=== PATIENT | male | born 2000 | race Caucasian/White ===

== ENCOUNTER 2021-09-27 18:44 | Outpatient (REF) | payer BC, SELFPAY ==
[2021-09-27 22:01] LABS: Bilirubin Negative (Negative); Blood Negative (Negative); Clarity Sl Cloudy (Clear); Glucose Negative (Negative); Ketones Negative (Negative); Leukocyte Esterase Negative (Negative); Nitrite Negative (Negative); Specific Gravity >= 1.030 (1.005-1.025)
[2021-09-28 17:28] LABS: ALT 19 U/L (16-63); AST 16 U/L (15-37); Albumin 4.2 g/dL (3.4-5.0); Alkaline Phosphatase 76 U/L (46-116); Bilirubin, Direct 0.2 mg/dL (0.0-0.2); Bilirubin, Total 0.6 mg/dL (0.2-1.0); Total Protein 7.1 g/dL (6.4-8.2)
[2021-09-29 09:55] LABS: HBs Antibody, Qual Positive (See Note); HBs Antibody, Quant 104.6 mIU/mL (See Note); Hepatitis B Core Antibody Negative (Negative); Hepatitis B surface Ag Negative (Negative); Hepatitis C Ab w Rflx HCV PCR Negative (Negative)
[2021-09-29 10:14] LABS: HIV-1/2 Ag & Ab Screen Negative (Negative)
[2021-09-29 10:34] LABS: Syphilis Serology (RPR) Negative (Negative)
[2021-09-29 13:34] LABS: Chlamydia Result Negative (Negative); GC Result Negative (Negative)
== END 2021-09-27 18:45 | disposition home or self-care (01) ==
LOC: LBN 18:44
PROVIDERS: Physician Assistant; PCP Pediatrics; Visit Provider Nurse Practitioner Family
DX: N39.0 Urinary tract infection, site not specified (principal); Z11.4 Encounter for screening for human immunodeficiency virus [HIV]; Z11.59 Encounter for screening for other viral diseases; Z11.3 Encounter for screening for infections with a predominantly sexual mode of transmission
CPT/HCPCS: 80076; 86704; 86706; 86803; 87340; 87389; 87491; 87591; 81003; 86592

== ENCOUNTER 2021-09-30 01:18 | Emergency (ER) | payer BC, SELFPAY ==
[2021-09-30 01:23] VITALS: BP 159/91; PULSE 98; RESP 16; TEMP 36.8; O2SAT 99
[2021-09-30 01:43] LABS: Bilirubin Negative (Negative); Blood Trace-intact (Negative); Clarity Clear (Clear); Glucose Negative (Negative); Ketones Negative (Negative); Leukocyte Esterase Negative (Negative); Nitrite Negative (Negative); Specific Gravity >= 1.030 (1.005-1.025); pH 6.5 (5-8)
[2021-09-30 01:45] LABS: Bacteria Rare HPF (Negative); C & S Indicated? No; Casts Negative LPF (Negative); Crystals Negative HPF (Negative); Epithelial Cells Rare HPF (Negative); Mucus Negative (Negative); RBC 0-2 HPF (0-2); WBC Negative HPF (0-5)
--- NOTE | 2021-09-30 01:45 | ED.GENADUL_ITS ---
Discharge Plan Disposition Patient Disposition: HOME Condition: Good Discharge Details Clinical Impression: Diarrhea Primary Care Provider: Maxx Gastelum ED Provider: Marty Aguila Home Meds and New Rx's Prescriptions: New loperamide [Imodium A-D] 2 mg capsule 2 mg PO Q6H PRNQty: 10 RF: 0 Continued sulfamethoxazole-trimethoprim [Bactrim DS] 800-160 mg tablet 1 tab PO BID Qty: 20 RF: 0 melatonin 5 MG tablet 5 mg PO HS PRNQty: 30 RF: 0 epinephrine [EpiPen 2-Zeeshan] 0.3 MG/0.3 ML auto-injector 0.3 mg IM PRN Qty: 1 RF: 1 Discharge Instructions Instructions: Acute Diarrhea (ED) Additional Instructions: At this time your diarrhea is likely secondary to the antibiotic that you are on. At this time the antibiotic is still important for the treatment of your other medical problem. Please take a probiotic daily to help with the diarrhea. You can take Maalox or Pepto-Bismol to help as well. I have sent a prescription for an antidiarrhea agent to your pharmacy. Please bring a stool sample to the pharmacy once you acquire. Please stick with a bland diet of oatmeal, rice, bananas. Avoid any greasy foods. If you notice any worsening of your symptoms, or any new symptoms such as vomiting, diarrhea, fever, chills, shortness of breath, chest pain, numbness, weakness, or fainting , please return immediately to the emergency department for reevaluation. Please follow up with your primary care provider as soon as possible for reassessment and reevaluation. As always, it was a pleasure participating in your medical care today. Referrals: Maxx Gastelum [Primary Care Provider] - Medical Decision Making 21-year-old male with no significant past medical history who presents today for evaluation of mild diarrhea. Patient was initially seen at the local urgent care 3 to 4 days ago, at that time it was because of complaints of urinary hesitancy, mild pain with the with urination and ejaculation. Exam at that time demonstrated mild prostatitis. He was started on Bactrim. Patient is feeling much better from those problems, however the day after starting the antibiotic he developed mild diarrhea and mild stomach unease. He denies any vomiting. He denies any melena or hematochezia. He denies any family history of Crohn's, ulcerative colitis, or celiac disease. He has not used a probiotic. He denies any other complaints this time. He denies any recent foreign travel or drinking from streams or camping. Physical exam demonstrates a nontender abdomen, no evidence of an acute surgical abdomen. Genital exam unremarkable. With no significant abdominal tenderness, complaint of mild achiness, in conjunction with mild diarrhea I suspect this patient has antibiotic induced diarrhea. C. difficile seems unlikely due to the low frequency of loose bowel movements that he has been having. Patient did attempt to procure a bowel movement sample here, but he was unable to. At this time I see no indication for emergent imaging or labs, however I did discuss these options with the patient. At this time through shared decision-making process he would like to hold off on any labs, or imaging currently. He will return if his symptoms worsen. Currently his symptoms are clinically consistent with mild antibiotic stated diarrhea. Discussed dietary changes, the importance of probiotic, and he will bring in a stool sample once he has been able to have a bowel movement. No current clinical evidence of colitis, appendicitis, cholecystitis, or other acute life-threatening surgical intra-abdominal pathology. I have extensively reviewed the treatment plan and discharge instructions with the patient. I have addressed all patient concerns at this time. The patient was made aware of what symptoms to monitor for that would warrant a return to the emergency department. Discussed the plan with the patient, they demonstrate verbal understanding and agreement with our assessment and plan at this time. The documentation in this chart was dictated using scoo mobility dictation software. Please excuse any dictation errors. HPI General Date/Time Provider Initiated Documentation: 09/30/21 01:31 . HPI Narrative: 21-year-old male with no significant past medical history who presents today for evaluation of mild diarrhea. Patient was initially seen at the local urgent care 3 to 4 days ago, at that time it was because of complaints of urinary hesitancy, mild pain with the with urination and ejaculation. Exam at that time demonstrated mild prostatitis. He was started on Bactrim. Patient is feeling much better from those problems, however the day after starting the antibiotic he developed mild diarrhea and mild stomach unease. He denies any vomiting. He denies any melena or hematochezia. He denies any family history of Crohn's, ulcerative colitis, or celiac disease. He has not used a probiotic. He denies any other complaints this time. He denies any recent foreign travel or drinking from streams or camping. Related Data Home Medications Medication Instructions Recorded Confirmed melatonin 5 mg PO HS PRN #30 tab 08/13/14 09/27/21 epinephrine [EpiPen 2-Zeeshan] 0.3 mg IM PRN #1 pack 03/21/16 09/30/21 sulfamethoxazole 800 1 tab PO BID #20 tab 09/27/21 09/30/21 mg-trimethoprim 160 mg tablet loperamide [Imodium A-D] 2 mg PO Q6H PRN #10 cap 09/30/21 Previous Rx's Medication Instructions Recorded sulfamethoxazole 800 1 tab PO BID #20 tab 09/27/21 mg-trimethoprim 160 mg tablet loperamide [Imodium A-D] 2 mg PO Q6H PRN #10 cap 09/30/21 Allergies Allergy/AdvReac Type Severity Reaction Status Date / Time shellfish derived Allergy Intermediate SWOLLEN Verified 09/30/21 01:25 LIPS AND PALATE General Stated Complaint: Abd Prob GWENDOLYN: 3 Review of Systems All systems reviewed & are unremarkable except as noted in HPI and below PFSH All Active Problems Diarrhea (Acute) Medical History Smoker in home dad, outside Thyroid nodule Family History Mother Mental disorder depression and anxiety, Bipolar Father Heart disease [place] age 47 Hyperlipidemia Maternal Aunt Neoplasm Social History Smoking/Tobacco Use Status: Current every day Tobacco Type: e-cigarettes Smoking risk assessment performed?: Yes Alcohol Intake: current Alcohol Intake frequency: holidays/special occasions only Drug use: Daily Substance use type: marijuana Do you feel safe at home: Yes Do you feel safe in your relationship?: Yes Exam Narrative Exam Narrative: 1.Const: Well-nourished, Well-developed, appearing stated age 2.Eyes: PERRL, no conjunctival injection, and symmetrical lids. 3.ENT: Atraumatic external nose and ears. Moist MM. Neck: Symmetric, trachea midline, No thyromegaly. 4.CVS: +S1/S2, No murmurs or gallops. Peripheral pulses 2+ and equal in all extremities. Brisk capillary refill in all extremities. 5.RESP: Unlabored respiratory effort. Clear to auscultation bilaterally. No wheezes rales or rhonchi 6.GI: Soft, Nontender/Nondistended, No hepatosplenomegaly. No guarding or rebound. No tenderness at McBurney's point. Negative Summers sign. No tenderness on palpation throughout the entire abdomen. No genital tenderness. No evidence of an acute surgical abdomen. Scrotal exam unremarkable. Penile exam unremarkable. 7.MSK: Normocephalic/Atraumatic, Extremities w/o deformity or ttp No cyanosis or clubbing, Normal movement of all extremities 8.Skin: Warm, Dry. No rashes or lesions. 9.Neuro: livestock rancher II-XII grossly intact. Sensation grossly intact, no focal neurologic deficits. 10.Psych: (AAO) x3. Appropriate mood and affect Course Vital Signs Vital signs: Vital Signs Temperature 36.8 C 09/30/21 01:23 Pulse 98 H 09/30/21 01:23 Respiratory Rate 16 09/30/21 01:23 Blood Pressure 159/91 H 09/30/21 01:23 Pulse Oximetry 99 09/30/21 01:23 Temperature 36.8 C 09/30/21 01:23 Pulse 98 H 09/30/21 01:23 Respiratory Rate 16 09/30/21 01:23 Respiratory Effort Non-Labored 09/30/21 01:26 Blood Pressure 159/91 H 09/30/21 01:23 Pulse Oximetry 99 09/30/21 01:23 Pain Level 7 09/30/21 01:23
== END 2021-09-30 01:55 | disposition home or self-care (01) ==
PROVIDERS: Emergency Provider Student in an Organized Health Care Education/Training Program; PCP Family Medicine
DX: R19.7 Diarrhea, unspecified (principal); N41.0 Acute prostatitis
CPT/HCPCS: 87329; 87493; 87505; 99283; 81003; 81015

== ENCOUNTER 2021-09-30 18:48 | Outpatient (REF) | payer BC, SELFPAY ==
[2021-09-30 20:15] LABS: C Diff PCR Negative (Negative)
[2021-10-03 11:02] LABS: Campylobacter PCR Negative (Negative); Salmonella PCR Negative (Negative); Shiga Toxin PCR Negative (Negative); Shigella/Enteroinvasive Ecoli Negative (Negative)
== END 2021-09-30 18:49 | disposition home or self-care (01) ==
LOC: LBN 18:48
PROVIDERS: PCP Family Medicine; Visit Provider Student in an Organized Health Care Education/Training Program
DX: R19.7 Diarrhea, unspecified (principal)
CPT/HCPCS: 87493; 87505; 87177

== ENCOUNTER 2021-10-05 19:11 | Outpatient (REF) | payer BC, SELFPAY ==
[2021-10-05 19:35] LABS: Anion Gap 6.9 mmol/L (3-11); BUN 10 mg/dL (7-18); CO2 27.1 mmol/L (21.0-32.0); CREATININE 0.9 mg/dL (0.70-1.30); Calcium 8.9 mg/dL (8.5-10.1); Chloride 107 mmol/L (98-107); Glucose 93 mg/dL (74-106); Potassium 4.1 mmol/L (3.5-5.1); Sodium 141 mmol/L (136-145)
== END 2021-10-05 19:12 | disposition home or self-care (01) ==
LOC: NCHCN 19:11
PROVIDERS: PCP Family Medicine; Visit Provider Family Medicine
DX: Z51.81 Encounter for therapeutic drug level monitoring (principal)
CPT/HCPCS: 80048

== ENCOUNTER 2021-11-04 21:34 | Outpatient (REF) | payer BC, SELFPAY ==
[2021-11-07 11:40] LABS: IgA 198 mg/dL (85-499); Interpretation (See Note); Tissue Transglutaminase IgA <1.2 U/mL (<4.0)
== END 2021-11-04 21:35 | disposition home or self-care (01) ==
LOC: NCHCN 21:34
PROVIDERS: PCP Family Medicine; Visit Provider Family Medicine
DX: R10.9 Unspecified abdominal pain (principal)
CPT/HCPCS: 82784; 83516

== ENCOUNTER 2021-11-11 13:45 | Emergency (ER) | payer BC, SELFPAY ==
[2021-11-11 13:51] VITALS: BP 126/83; PULSE 76; RESP 12; TEMP 36.8; O2SAT 100
--- NOTE | 2021-11-11 14:00 | DI.US_ITS ---
Exam(s) US SCROTUM EXAM: US SCROTUM CLINICAL HISTORY: discomfort left testicle. TECHNIQUE: Scrotal ultrasound performed using grayscale, color-flow and spectral Doppler analysis. COMPARISON: No exams were available for comparison FINDINGS: Right testicle: 4.4 x 1.9 x 2.9 cm Left testicle: 4.3 x 2.5 x 3.3 cm Echogenicity: Normal. Contour: Smooth. Mass: None seen. Microlithiasis: None. Hydrocele: None. Variocele: Left varicocele increasing in prominence with Valsalva. Vessels dilated to 4 millimeters in diameter. Hernia: No peristalsing bowel loop identified. Epididymis: Normal. DOPPLER: Color: Symmetric and uniform, no hyperemia. Duplex: Bilateral testicular arterial waveforms visualized. IMPRESSION: Normal appearing bilateral testicles. Left varicocele. DATA REPOSITORY:
--- NOTE | 2021-11-11 14:10 | NUR.NOTE ---
Nursing Note: Pt exam done by Dr. Garza w/ Addison Espinal, FRANCISCOP in room.
--- NOTE | 2021-11-11 15:14 | NUR.NOTE ---
Nursing Note: Pt return from u/s, no new complaints, NAD noted.
--- NOTE | 2021-11-11 15:32 | ED.GENADUL_ITS ---
Discharge Plan Disposition Patient Disposition: HOME Condition: Stable Discharge Details Clinical Impression: Left varicocele, Testicular swelling Primary Care Provider: Maxx Gastelum ED Provider: Amadou Garza Home Meds and New Rx's Prescriptions: Continued melatonin 5 MG tablet 5 mg PO HS PRNQty: 30 RF: 0 epinephrine [EpiPen 2-Zeeshan] 0.3 MG/0.3 ML auto-injector 0.3 mg IM PRN Qty: 1 RF: 1 loperamide [Imodium A-D] 2 mg capsule 2 mg PO Q6H PRNQty: 10 RF: 0 Discharge Instructions Instructions: Varicocele (ED) Additional Instructions: Please wear the athletic supportive underwear to elevate your scrotum. Please follow-up with urology should symptoms persist. Please return to the emergency department immediately should you have any worsening or new concerning symptoms. Referrals: Maxx Gastelum [Primary Care Provider] - Discharge Data Discharge Date/Time-TO BE ENTERED AT DEPARTURE: 11/11/21 16:00 Medical Decision Making 21-year-old male with left discomfort and mild swelling that he noticed this morning. No significant inflammatory changes on exam. Abdominal exam benign. Patient was recently diagnosed with prostatitis and treated with course of Bactrim and symptoms have resolved. STD testing negative in recent past. Patient is hypertensive which I suspect secondary to anxiety. Consider torsion vs mass. Ultrasound of the scrotum was interpreted by radiology: Varicocele is present, testicle normal testicle with good blood flow. UA negative. Plan to repeat chlamydia and gonorrhea testing. HPI General Mode of arrival: ambulatory . Date/Time Provider Initiated Documentation: 11/11/21 14:03 . Limitations to Documentation: no limitations . Information obtained by: patient . HPI Narrative: 21-year-old male presents with chief complaint of left testicular discomfort. Patient notes discomfort started this morning while in the shower. He states his left testicle feels swollen. He denies dysuria or penile discharge. Patient denies trauma. Patient was recently seen at [facility] and diagnosed with prostatitis and completed course of Bactrim about 2 weeks ago. Symptoms have improved. Patient patient did have gonorrhea and Chlamydia testing at [facility] which was negative. Related Data Home Medications Medication Instructions Recorded Confirmed melatonin 5 mg PO HS PRN #30 tab 08/13/14 09/27/21 epinephrine [EpiPen 2-Zeeshan] 0.3 mg IM PRN #1 pack 03/21/16 09/30/21 loperamide [Imodium A-D] 2 mg PO Q6H PRN #10 cap 09/30/21 Previous Rx's Medication Instructions Recorded loperamide [Imodium A-D] 2 mg PO Q6H PRN #10 cap 09/30/21 Allergies Allergy/AdvReac Type Severity Reaction Status Date / Time shellfish derived Allergy Intermediate SWOLLEN Verified 09/30/21 01:25 LIPS AND PALATE General Stated Complaint: Male Reproductive Problem GWENDOLYN: 2 Review of Systems Constitutional Constitutional: Denies fever(s) Genitourinary Genitourinary: Reports as per HPI PFSH All Active Problems Diarrhea (Acute) Left varicocele (Acute) Testicular swelling (Acute) Medical History Smoker in home dad, outside Thyroid nodule Family History Mother Mental disorder depression and anxiety, Bipolar Father Heart disease [place] age 47 Hyperlipidemia Maternal Aunt Neoplasm Social History Smoking/Tobacco Use Status: Current every day Tobacco Type: e-cigarettes Smoking risk assessment performed?: Yes Alcohol Intake: current Alcohol Intake frequency: holidays/special occasions only Drug use: Daily Substance use type: marijuana Do you feel safe at home: Yes Do you feel safe in your relationship?: Yes Exam Const General: cooperative and no acute distress HENMT Mouth: moist mucous membranes Eyes Conjunctivae: normal conjunctivae Sclera: normal sclerae Resp Auscultation: clear to auscultation bilaterally, no rales, no rhonchi and no wheezes Cardio Rate: regular rate and not tachycardic Rhythm: regular rhythm GI Palpation: soft, not firm, no guarding, no masses, not rigid and nontender Penis: normal penis Scrotum: no ecchymosis, not edematous, not erythematous, no hydroceles, no inguinal hernias, no masses and other (Questionable mild posterior scrotal swelling) Testes: normal Skin General skin exam: no rashes or lesions noted Neuro General: patient alert, patient awake and tone normal Psych Affect: anxious affect Course Vital Signs Vital signs: Vital Signs Temperature 36.8 C 11/11/21 13:51 Pulse 76 11/11/21 13:51 Respiratory Rate 12 11/11/21 13:51 Blood Pressure 126/83 11/11/21 13:51 Pulse Oximetry 100 11/11/21 13:51 Temperature 36.8 C 11/11/21 13:51 Temperature Source Oral 11/11/21 13:51 Pulse 76 11/11/21 13:51 Respiratory Rate 12 11/11/21 13:51 Respiratory Effort 11/11/21 13:59 Blood Pressure 126/83 11/11/21 13:51 Blood Pressure Position Sitting 11/11/21 13:51 Pulse Oximetry 100 11/11/21 13:51 Oxygen Delivery Method Room Air 11/11/21 13:51 Oxygen Flow Rate 0 11/11/21 13:51 Pain Level 6 11/11/21 13:51 PAWSS Have you Been Recently Intoxicated or Drunk Within the Last 30 days?: No Have you Ever Experienced Previous Episodes of Alcohol Withdrawal?: No Have you ever Experienced Withdrawal Seizures?: No Have you ever Experienced Delirium Tremens(DT)s?: No Have you ever undergone Alcohol Rehabilitation Treatment (i.e, inpt ot outpatient treatment programs)?: No Have you ever Experienced Blackouts?: No Have you ever Combined Alcohol with other Downers within the last 90 days?: No Have you ever Combined Alcohol with any other Substance of Abuse during the last 90 days?: No Positive Blood Alcohol level on Presentation? [PCS.BAL]: No Evidence of Increased Autonomic Activity (i.e. HR>120, tremor, sweating, agitation, nausea)?: No Result: 0
[2021-11-11 15:42] LABS: Bilirubin Negative (Negative); Blood Negative (Negative); Clarity Clear (Clear); Glucose Negative (Negative); Ketones Negative (Negative); Leukocyte Esterase Negative (Negative); Nitrite Negative (Negative); Urobilinogen 0.2 EU/dL (Up TO 0.2)
[2021-11-14 16:30] LABS: Chlamydia Result Negative (Negative); GC Result Negative (Negative)
== END 2021-11-11 16:00 | disposition home or self-care (01) ==
PROVIDERS: Emergency Provider Student in an Organized Health Care Education/Training Program; PCP Family Medicine
DX: I86.1 Scrotal varices (principal); N50.89 Other specified disorders of the male genital organs
CPT/HCPCS: 87491; 87591; 99284; 76870; 81003; 99283

== ENCOUNTER 2021-11-18 19:16 | Emergency (ER) | payer BC, SELFPAY ==
[2021-11-18 19:19] VITALS: BP 146/77; PULSE 83; RESP 18; TEMP 36.7; O2SAT 100
--- NOTE | 2021-11-18 19:37 | ED.GENADUL_ITS ---
Discharge Plan Disposition Patient Disposition: HOME Condition: Improving Discharge Details Clinical Impression: Gastritis Primary Care Provider: Maxx Gastelum ED Provider: Osito Shanks Home Meds and New Rx's Prescriptions: New famotidine [Pepcid] 20 mg tablet 20 mg PO DAILY 14 Days Qty: 14 RF: 0 Continued melatonin 5 MG tablet 5 mg PO HS PRNQty: 30 RF: 0 epinephrine [EpiPen 2-Zeeshan] 0.3 MG/0.3 ML auto-injector 0.3 mg IM PRN Qty: 1 RF: 1 loperamide [Imodium A-D] 2 mg capsule 2 mg PO Q6H PRNQty: 10 RF: 0 Discharge Instructions Instructions: Gastritis (ED) Additional Instructions: Please observe a bland diet. Avoid fatty, fried, spicy, tomato-based sauces. Decrease your alcohol use. Please make efforts to decrease your tobacco use as well. We will ask our care management team to arrange a follow-up for you in general surgery clinic. Please take Pepcid as prescribed x2 weeks. Return to the emerge department develop bloating, fever, vomiting, or any other acute concerns. Medical Decision Making This is a 21-year-old male with a history of some recent heavy alcohol use, now drinking 2-3 shots most days. He presents with intermittent episodes of epigastric pain over weeks time. He is not had vomiting and no dark or bloody stools. Vital signs are within normal limits. He is tender in the epigastrium without rebound or guarding. Differential diagnosis includes gastritis, pancreatitis. Patient IV access established, screening laboratories obtained Sure laboratories are reassuring with unremarkable CBC, chemistries, LFTs and lipase. Patient improved with GI cocktail and PPI. I will place him on 2 weeks of Pepcid. He will observe and improve diet and decrease alcohol use. We will refer him to surgery for consideration of upper endoscopy. HPI General Mode of arrival: ambulatory . Date/Time Provider Initiated Documentation: 11/18/21 19:28 . Limitations to Documentation: no limitations . Information obtained by: patient . History of Present Illness 21 year old M presents to the emergency department with the chief complaint of Epigastric pain for days time, described as moderate, Quality is described as dull, and is localized to the abdomen. Patient reports no radiation. Patient started experiencing this day(s) and it has been intermittent. No relieving factors improve symptom(s), No exacerbating factors reported . Patient notes other (Denies dark or bloody stools); denies fever/chills and nausea/vomiting. Patient did receive the following treatments prior to arrival, none Related Data Home Medications Medication Instructions Recorded Confirmed melatonin 5 mg PO HS PRN #30 tab 08/13/14 11/18/21 epinephrine [EpiPen 2-Zeeshan] 0.3 mg IM PRN #1 pack 03/21/16 11/18/21 loperamide [Imodium A-D] 2 mg PO Q6H PRN #10 cap 09/30/21 11/18/21 famotidine [Pepcid] 20 mg PO DAILY 14 Days #14 tab 11/18/21 Previous Rx's Medication Instructions Recorded loperamide [Imodium A-D] 2 mg PO Q6H PRN #10 cap 09/30/21 famotidine [Pepcid] 20 mg PO DAILY 14 Days #14 tab 11/18/21 Allergies Allergy/AdvReac Type Severity Reaction Status Date / Time shellfish derived Allergy Intermediate SWOLLEN Verified 11/18/21 19:22 LIPS AND PALATE General Stated Complaint: Abd Prob GWENDOLYN: 3 Review of Systems Narrative: No fever, chills, vomiting. Has been drinking 2-4 drinks frequently. Smokes with a vaporizer daily. Eight systems reviewed and otherwise negative. See HPI PFSH All Active Problems (Updated 11/18/21 @ 20:47 by Osito Shanks MD) Diarrhea (Acute) Left varicocele (Acute) Testicular swelling (Acute) Gastritis (Acute) Medical History Smoker in home dad, outside Thyroid nodule Family History Mother Mental disorder depression and anxiety, Bipolar Father Heart disease [place] age 47 Hyperlipidemia Maternal Aunt Neoplasm Social History Smoking/Tobacco Use Status: Current every day Tobacco Type: e-cigarettes Smoking risk assessment performed?: Yes Alcohol Intake: current Alcohol Intake frequency: 3 or more drinks per day Alcohol type: hard liquor Drug use: Daily Substance use type: marijuana Do you feel safe at home: Yes Do you feel safe in your relationship?: Yes Exam Narrative Exam Narrative: GEN: awake, alert, oriented 3. Pleasant, well groomed, interactive. HEAD: Normocephalic, atraumatic EYES: PERRL, EOMI NECK: Full ROM, no CJ, no menigismus CHEST/RESP: Nontender, clear to auscultation bilateral, no wheeze/rhonchi/rales CARDIOVASCULAR: RRR, no murmur, rub jaleel. 2+ Rad pulse bilateral ABDOMEN: Soft, tender in the epigastrium, no mass. +Bowel sounds EXT: Full ROM, no edema, no rash Neuro: Grossly normal neurologic exam, conversant, interactive. Psych: Speech fluent, thoughts congruent, affect normal Course Vital Signs Vital signs: Vital Signs Temperature 36.7 C 11/18/21 19:19 Pulse 83 11/18/21 19:19 Respiratory Rate 18 11/18/21 19:19 Blood Pressure 146/77 H 11/18/21 19:19 Pulse Oximetry 100 11/18/21 19:19 Temperature 36.7 C 11/18/21 19:19 Temperature Source Temporal Artery Scan 11/18/21 19:19 Pulse 83 11/18/21 19:19 Respiratory Rate 18 11/18/21 19:19 Respiratory Effort Non-Labored 11/18/21 19:22 Blood Pressure 146/77 H 11/18/21 19:19 Pulse Oximetry 100 11/18/21 19:19 Oxygen Delivery Method Room Air 11/18/21 19:19 Oxygen Flow Rate 0 11/18/21 19:19 Pain Level 7 11/18/21 19:22 Comment 11/18/21 19:19 PAWSS Have you Been Recently Intoxicated or Drunk Within the Last 30 days?: Yes Have you Ever Experienced Previous Episodes of Alcohol Withdrawal?: No Have you ever Experienced Withdrawal Seizures?: No Have you ever Experienced Delirium Tremens(DT)s?: No Have you ever undergone Alcohol Rehabilitation Treatment (i.e, inpt ot outpatie nt treatment programs)?: No Have you ever Experienced Blackouts?: No Have you ever Combined Alcohol with other Downers within the last 90 days?: No Have you ever Combined Alcohol with any other Substance of Abuse during the last 90 days?: No Positive Blood Alcohol level on Presentation? [PCS.BAL]: No Evidence of Increased Autonomic Activity (i.e. HR>120, tremor, sweating, agitation, nausea)?: No Result: 1
[2021-11-18 19:38] LABS: Bilirubin Negative (Negative); Blood Negative (Negative); Clarity Clear (Clear); Glucose Negative (Negative); Ketones Negative (Negative); Leukocyte Esterase Negative (Negative); Nitrite Negative (Negative); Urobilinogen 0.2 EU/dL (Up TO 0.2)
[2021-11-18 19:51] LABS: Abs Immature Grans 0.02 10^3/uL (0.0-0.06); Absolute Basophil Count 0.05 10^3/uL (0.0-0.2); Absolute Eosinophil Count 0.18 10^3/uL (0.0-0.7); Absolute Lymphocyte Count 1.82 10^3/uL (1.2-3.4); Absolute Neutrophil Count 4.58 10^3/uL (1.2-6.7); Basophils % 0.7; Eosinophils % 2.5; HCT 40.5 % (40.0-50.0); Immature Grans % 0.3; Lymphocytes % 25.5; MCH 31.1 pg (27.0-33.0); MCHC 34.6 % (32.0-36.0); MPV 9.1 fL (8.0-11.0); Nucleated RBC 0 %; Platelet Count 278 10^3/uL (130-400); RDW 11.6 % (11.8-14.1); RDW-SD 38.1 fL; WBC 7.15 10^3/uL (4.4-10.8)
[2021-11-18] MEDS: Pantoprazole 40 MG VIAL IVP (19:52)
[2021-11-18 20:05] LABS: ALT 17 U/L (16-63); AST 15 U/L (15-37); Albumin 4.1 g/dL (3.4-5.0); Alkaline Phosphatase 72 U/L (46-116); Anion Gap 9.4 mmol/L (3-11); BUN 10 mg/dL (7-18); Bilirubin, Total 0.6 mg/dL (0.2-1.0); CO2 24.6 mmol/L (21.0-32.0); CREATININE 0.7 mg/dL (0.70-1.30); Calcium 8.9 mg/dL (8.5-10.1); Chloride 106 mmol/L (98-107); Glucose 130 mg/dL (74-106); Lipase 92 U/L (73-393); Potassium 3.7 mmol/L (3.5-5.1); Sodium 140 mmol/L (136-145); Total Protein 7.4 g/dL (6.4-8.2)
[2021-11-18 20:39] LABS: ETHANOL BLOOD < 3.0 mg/dL (<10)
[2021-11-18] MEDS: Famotidine 20 MG TAB PO (20:48)
--- NOTE | 2021-11-18 21:04 | NUR.NOTE ---
Referral faxed to [facility] to f/u in 47-6 weeks for gastritis.Nursing Note:
== END 2021-11-18 20:59 | disposition home or self-care (01) ==
PROVIDERS: Emergency Provider Emergency Medicine; PCP Family Medicine
DX: K29.00 Acute gastritis without bleeding (principal); F10.10 Alcohol abuse, uncomplicated
CPT/HCPCS: 36415; 80053; 83690; 96374; 99284; 80320; 81003; 85025; 99283

== ENCOUNTER 2021-11-25 21:58 | Emergency (ER) | payer BC, SELFPAY ==
[2021-11-25] VITALS (81 sets, daily range): BP systolic 125–136; BP diastolic 66–81; PULSE 57–72; RESP 10–29; TEMP 36.6; O2SAT 96–100
--- NOTE | 2021-11-25 22:00 | RT.EKG_ITS ---
APPROVED REPORT Exam: Resting ECG Reason for Exam: chest pain Patient Location: E HR:67 bpm ECG Measurements Heart Rate 67 AXIS OK 170 P 43 QRSd 97 QRS 55 QT 364 T 61 QTc 381 Conclusion Sinus rhythm...normal P axis, V-rate 60- 99 Atrial premature complex...SV complex w/ short R-R interval
--- NOTE | 2021-11-25 22:15 | DI.RAD_ITS ---
Exam(s) XR CHEST 2V PA LATERAL EXAM: XR CHEST 2V PA LATERAL CLINICAL HISTORY: chest pain. TECHNIQUE: 2D digital imaging was performed. COMPARISON: No exams were available for comparison FINDINGS: Heart size is normal. The mediastinum is not widened. Lungs are clear. No infiltrates nor pleural effusions. IMPRESSION: No acute pulmonary findings. DATA REPOSITORY: RADIATION DOSE DELIVERED:
--- NOTE | 2021-11-25 22:25 | ED.GENADUL_ITS ---
Discharge Plan Disposition Patient Disposition: HOME Condition: Improving Discharge Details Clinical Impression: Atypical chest pain Primary Care Provider: Maxx Gastelum ED Provider: Fercho Garcia Home Meds and New Rx's Prescriptions: Continued melatonin 5 MG tablet 5 mg PO HS PRNQty: 30 RF: 0 epinephrine [EpiPen 2-Zeeshan] 0.3 MG/0.3 ML auto-injector 0.3 mg IM PRN Qty: 1 RF: 1 loperamide [Imodium A-D] 2 mg capsule 2 mg PO Q6H PRNQty: 10 RF: 0 Changed famotidine [Pepcid] 20 mg tablet 40 mg PO DAILY 14 Days Qty: 28 RF: 0 Discharge Instructions Instructions: Chest Pain (ED) Additional Instructions: Continue to monitor your symptoms and if you have any new or worsening symptoms please return immediately to the emergency department for reevaluation. We did increase your famotidine given that it is highly suspicious that you may have continued symptoms of gastritis/acid reflux. Please follow-up with your primary care provider for further reassessment and work-up as needed. Medical Decision Making Patient presented with chest pain of uncertain etiology. But likely GERD related given history of recent gastritis due to alcohol intake which patient states is improving with cessation of alcohol over the past week. Based on their history, lab analysis, EKG (which showed no evidence of ischemia or infarction), and imaging, in addition to the patient's physical exam, I see no evidence at this time for a malignant etiology for the patient's chest pain. There is no acute evidence for pulmonary embolus, acute myocardial infarction, pneumothorax, esophageal rupture, cardiac tamponade, thoracic artery dissection, or any other emergent cardiac, pulmonary or aortic pathology at this time. Based on the nature and duration of the patient's pain, paucity of EKG findings, and normal cardiac enzymatic blood analysis, acute coronary syndrome is exceedingly unlikely. It is highly likely that cardiac enzymes would be abnormal in chest pain of this duration if their chest pain was attributable to ACS.The patient also has very low risk for coronary artery disease based on their risk factor profile with no substantial risk factors (Age<65, nicotine use is only CAD risk factors, patient denies family history of CAD, hypertension, hypercholesterolemia, diabetes, no severe angina, no worrisome ST changes or positive cardiac biomarker. HEART score 1. Due to this risk versus benefit of second troponin was discussed with patient and at this time was not performed. Patient did state improvement of symptoms after GI cocktail again leading to more likely cause of GERD. Educated patient on other lifestyle risk factors that he has for GERD/heartburn along with importance of continuing on the famotidine. This patient may require further cardiac testing on an outpatient basis and patient should follow-up visit with their primary care physician. The patient understands that at this time there is no evidence for a more malignant underlying process, but the patient also understands that early in the process of an illness, an emergency department workup can be falsely reassuring. Routine discharge counseling was given to the patient and the patient understands that worsening, changing, or persistent symptoms should prompt an immediate call or follow up with their primary physician or the emergency department immediately. The importance of close follow up was also discussed with the patient. Imaging Data Radiologic Study: Imaging: X-Ray My impression: Agree with radiologist Radiologist's impression: No acute findings Lab Data Lab results reviewed: Yes I reviewed the patient's lab results. Labs: Laboratory Tests Range/Units 11/25/21 11/25/21 11/25/21 22:33 22:33 22:33 WBC (4.4-10.8) 10^3/uL 7.85 RBC (4.36-5.78) 10^6/uL 4.36 Hgb (13.5-17.5) g/dL 13.5 Hct (40.0-50.0) % 39.6 L MCV (80-95) fL 90.8 MCH (27.0-33.0) pg 31.0 MCHC (32.0-36.0) % 34.1 RDW (11.8-14.1) % 11.5 L Plt Count (130-400) 10^3/uL 286 MPV (8.0-11.0) fL 9.1 Immature Gran % 0.5 Neutrophils % 58.9 Lymphocytes % 31.0 Monocytes % 8.2 Eosinophils % 1.0 Basophils % 0.4 Nucleated RBC % % 0 Absolute Neutrophils (1.2-6.7) 10^3/uL 4.63 Absolute Lymphocytes (1.2-3.4) 10^3/uL 2.43 Absolute Monocytes (0.1-0.8) 10^3/uL 0.64 Absolute Eosinophils (0.0-0.7) 10^3/uL 0.08 Absolute Basophils (0.0-0.2) 10^3/uL 0.03 D-Dimer (<500) ng/mlFEU 125 Sodium (136-145) mmol/L 140 Potassium (3.5-5.1) mmol/L 3.7 Chloride (98-107) mmol/L 105 Carbon Dioxide (21.0-32.0) mmol/L 24.9 Anion Gap (3-11) mmol/L 10.1 BUN (7-18) mg/dL 11 Creatinine (0.70-1.30) mg/dL 0.7 Estimated GFR/1.73 m2 (mL/min/1.73m2) >= 60.00 Glucose (74-106) mg/dL 95 Calcium (8.5-10.1) mg/dL 8.9 Magnesium (1.8-2.4) mg/dL 2.1 Total Bilirubin (0.2-1.0) mg/dL 0.4 AST (15-37) U/L 13 L ALT (16-63) U/L 15 L Alkaline Phosphatase (46-116) U/L 63 Troponin I (<or=60) ng/L < 50 Total Protein (6.4-8.2) g/dL 7.2 Albumin (3.4-5.0) g/dL 4.0 ECG Data Interpretation: EKG reviewed with attending physician See dictation note for full review. Her heart rate of 67 and sinus rhythm with no obvious ischemic changes and no STEMI. HPI General Mode of arrival: ambulatory . Date/Time Provider Initiated Documentation: 11/25/21 21:59 . Limitations to Documentation: no limitations . Information obtained by: patient and old records reviewed . History of Present Illness 21 year old M presents to the emergency department with the chief complaint of chest pain, described as mild, with intensity rated at 3. Quality is described as aching and dull, and is localized to the chest (Substernal). Patient reports no radiation (Mostly to the right substernal area but does state occasional sharp to the left). Patient started experiencing this day(s) (3) and it has been constant and colicky. No relieving factors improve symptom(s), No exacerbating factors reported . Patient notes denies cough, fever/chills, nausea/vomiting and shortness of breath. Patient did receive the following treatments prior to arrival, none Related Data Home Medications Medication Instructions Recorded Confirmed melatonin 5 mg PO HS PRN #30 tab 08/13/14 11/18/21 epinephrine [EpiPen 2-Zeeshan] 0.3 mg IM PRN #1 pack 03/21/16 11/18/21 loperamide [Imodium A-D] 2 mg PO Q6H PRN #10 cap 09/30/21 11/18/21 famotidine [Pepcid] 40 mg PO DAILY 14 Days #28 tab 11/25/21 Previous Rx's Medication Instructions Recorded loperamide [Imodium A-D] 2 mg PO Q6H PRN #10 cap 09/30/21 famotidine [Pepcid] 40 mg PO DAILY 14 Days #28 tab 11/25/21 Allergies Allergy/AdvReac Type Severity Reaction Status Date / Time shellfish derived Allergy Intermediate SWOLLEN Verified 11/18/21 19:22 LIPS AND PALATE General Stated Complaint: Chest/Rib GWENDOLYN: 3 Review of Systems Constitutional Constitutional: Denies chills, Denies fever(s) and Denies headache(s) ENT Ears, Nose, Mouth, and Throat: Denies headache(s) Cardiovascular Cardiovascular: Reports as per HPI, Reports chest pain, Denies chest pain with activity, Denies irregular heart rhythm, Denies lightheadedness, Denies radiating jaw, neck or arm pain, Denies palpitations and Denies dyspnea Respiratory Respiratory: Denies cough, Denies hemoptysis and Denies dyspnea Gastrointestinal Gastrointestinal: Denies abdominal pain, Denies nausea and Denies vomiting Neurologic Neurologic: Denies headache(s) Psychiatric Psychiatric: Denies anxiety Endocrine Endocrine: Denies palpitations PFSH All Active Problems (Updated 11/25/21 @ 23:28 by Fercho Garcia NP) Diarrhea (Acute) Left varicocele (Acute) Testicular swelling (Acute) Gastritis (Acute) Atypical chest pain (Acute) Medical History Smoker in home dad, outside Thyroid nodule Family History Mother Mental disorder depression and anxiety, Bipolar Father Heart disease CA age 47 Hyperlipidemia Maternal Aunt Neoplasm Social History Smoking/Tobacco Use Status: Current every day Tobacco Type: e-cigarettes Smoking risk assessment performed?: Yes Alcohol Intake: former Drug use: Daily Substance use type: marijuana Do you feel safe at home: Yes Do you feel safe in your relationship?: Yes Exam Const General: cooperative, healthy appearing, comfortable, no acute distress, not diaphoretic and not ill appearing Nutritional Appearance: average body habitus Orientation: alert, awake and oriented x3 Limitations: mental status not altered Neck Neck: normal visual inspection, full ROM, trachea midline, supple and no anterior neck swelling Thyroid: thyroid normal Carotids: normal carotid upstroke and no bruits Chest Chest: normal inspection of the chest Resp Effort & Inspection: normal respiratory effort and able to speak in complete sentences Auscultation: clear to auscultation bilaterally Cardio Jugular venous pressure: no JVD Palpation: normal PMI Rate: regular rate Rhythm: regular rhythm Heart Sounds: S1 normal, S2 normal, no click, no gallops, no murmurs and no rubs Bruits: no abdominal aortic bruits and no carotid bruits Pulses: radial pulses present bilaterally 2+ GI Inspection: normal to inspection Palpation: soft, no aortic enlargement, no pulsatile masses and nontender Auscultation: normal bowel sounds Skin General skin exam: no rashes or lesions noted Neuro General: patient alert, patient awake, patient oriented x3, tone normal and moves all extremities Course Vital Signs Vital signs: Vital Signs Temperature 36.6 C 11/25/21 22:01 Pulse 72 11/25/21 22:01 Respiratory Rate 20 11/25/21 22:01 Pulse Oximetry 98 11/25/21 22:01 Temperature 36.6 C 11/25/21 22:01 Temperature Source Temporal Artery Scan 11/25/21 22:01 Pulse 72 11/25/21 22:01 Respiratory Rate 20 11/25/21 22:01 Respiratory Effort 11/25/21 22:16 Respiratory Depth Normal 11/25/21 22:16 Respiratory Pattern Normal 11/25/21 22:16 Blood Pressure Position Sitting 11/25/21 22:01 Pulse Oximetry 98 11/25/21 22:01 Oxygen Delivery Method Room Air 11/25/21 22:01 Oxygen Flow Rate 0 11/25/21 22:01 Pain Level 3 11/25/21 22:16
[2021-11-25 22:41] LABS: Abs Immature Grans 0.04 10^3/uL (0.0-0.06); Absolute Basophil Count 0.03 10^3/uL (0.0-0.2); Absolute Eosinophil Count 0.08 10^3/uL (0.0-0.7); Absolute Lymphocyte Count 2.43 10^3/uL (1.2-3.4); Absolute Monocyte Count 0.64 10^3/uL (0.1-0.8); Absolute Neutrophil Count 4.63 10^3/uL (1.2-6.7); Basophils % 0.4; HCT 39.6 % (40.0-50.0); HGB 13.5 g/dL (13.5-17.5); Immature Grans % 0.5; MCHC 34.1 % (32.0-36.0); MCV 90.8 fL (80-95); MPV 9.1 fL (8.0-11.0); Monocytes % 8.2; Neutrophils % 58.9; Nucleated RBC 0 %; Platelet Count 286 10^3/uL (130-400); RBC 4.36 10^6/uL (4.36-5.78); RDW 11.5 % (11.8-14.1); RDW-SD 38.6 fL; WBC 7.85 10^3/uL (4.4-10.8)
[2021-11-25 22:55] LABS: ALT 15 U/L (16-63); AST 13 U/L (15-37); Alkaline Phosphatase 63 U/L (46-116); Anion Gap 10.1 mmol/L (3-11); BUN 11 mg/dL (7-18); Bilirubin, Total 0.4 mg/dL (0.2-1.0); CO2 24.9 mmol/L (21.0-32.0); CREATININE 0.7 mg/dL (0.70-1.30); Calcium 8.9 mg/dL (8.5-10.1); Chloride 105 mmol/L (98-107); Glucose 95 mg/dL (74-106); Magnesium 2.1 mg/dL (1.8-2.4); Potassium 3.7 mmol/L (3.5-5.1); Sodium 140 mmol/L (136-145); Total Protein 7.2 g/dL (6.4-8.2); Troponin I < 50 ng/L (<or=60)
--- NOTE | 2021-11-25 23:06 | DI.VRAD_ITS ---
PROCEDURE INFORMATION: Exam: XR Chest Exam date and time: 11/25/2021 10:25 PM Age: 21 years old Clinical indication: Other: Chest pain TECHNIQUE: Imaging protocol: XR of the chest. Views: 2 views. COMPARISON: No relevant prior studies available. FINDINGS: Lungs: Unremarkable. No consolidation. Pleural spaces: Unremarkable. No pleural effusion. No pneumothorax. Heart/Mediastinum: Unremarkable. No cardiomegaly. Bones/joints: Unremarkable. IMPRESSION: No acute findings. Dictated and Authenticated by: Francis Mcmahon MD. Ordering:MICHAEL Brantley MD
[2021-11-25 23:08] LABS: D-Dimer 125 ng/mlFEU (<500)
== END 2021-11-25 23:43 | disposition home or self-care (01) ==
PROVIDERS: Emergency Provider Nurse Practitioner Family; PCP Family Medicine
DX: R07.89 Other chest pain (principal); K29.20 Alcoholic gastritis without bleeding; F17.290 Nicotine dependence, other tobacco product, uncomplicated
CPT/HCPCS: 36415; 80053; 93005; 99284; 71046; 83735; 84484; 85025; 85379; 93010; 99283

== ENCOUNTER 2021-12-16 03:50 | Outpatient (CLI) | payer BC, SELFPAY ==
[2021-12-16 22:36] LABS: COVID-19 RT-PCR UVMMC Result Negative (Negative)
== END 2021-12-16 03:51 | disposition home or self-care (01) ==
LOC: LBO 03:50
PROVIDERS: PCP Family Medicine; Visit Provider Surgery
DX: Z20.822 Contact with and (suspected) exposure to COVID-19 (principal)
CPT/HCPCS: 87635; U0003

== ENCOUNTER 2021-12-19 07:31 | Day surgery (SDC) | payer BC, SELFPAY ==
--- NOTE | 2021-12-19 06:57 | ENDO_ITS ---
Date of service: 12/19/21 Time of Service: : Endoscopy Report DATE OF PROCEDURE: 12/19/21 PRE-OP DIAGNOSIS: Epigastric pain/ atypical chest pain POST-OP DIAGNOSIS: other (gastritis and esophagitis) PROCEDURE: EGD with biopsies SURGEON: Madyson Beck ANESTHESIA TYPE: General:No Airway ESTIMATED BLOOD LOSS: 5 PATHOLOGY: other (duodenal bx, antrum bx, and GE junction bx) COMPLICATIONS: None DISPOSITION: same day INDICATIONS: Ventura is a 21-year-old male who has been referred by the emergency department for atypical chest pain/epigastric pain.? Cardiac work-up in the emergency department was negative.? His symptoms sound like he has gastritis.? The Pepcid he was started on seems to be helping as well as avoiding acidic and high fatty foods.? He does still have symptoms despite Pepcid so an EGD is recommended.? We discussed the procedure in detail as well as the complications. Risks, benefits and complications have been reviewed. Complications include but are not limited to bleeding, pain, perforation, sore throat, aspiration, and adverse reaction to the medications.? Questions were entertained and answered to their satisfaction and they wished to proceed. No guarantees were given or implied. Proceed with EGD under sedation FINDINGS: mild inflammation of the stomach Moderate inflammation of the esophagus PROCEDURE DESCRIPTION: After informed consent was obtained the patient was take to the procedure room and placed in a supine position. Monitors were applied and a time out was done. The patients name, date of , procedure type, allergies to medications and metal in their body was reviewed. A bite block was placed and the patient was sedated. Once sedated and comfortable the gastroscope was advanced through the oropharynx which was grossly normal into the esophagus. The proximal and mid- esophagus were normal. In the distal esophagus there was mild inflammation noted. The scope was advanced into the stomach and through the pylorus into the 3rd portion of the duodenum. The duodenum was noted to be normal. Biopsies were done. The scope was retracted back into the stomach and biopsies were done to rule out H. pylori. There were no ulcers. The scope was retroflexed. The cardia and fundus were noted to be normal. There was no hiatal hernia noted. The scope was retracted back into the esophagus and biopsies were done of the GE junction to rule out Blas's. The Z line was regular. The GE junction was at 38 cm. The scope was removed and the patient was woken up and taken back to [facility] in stable condition. Follow up: 2 weeks. Switch from Pepcid to Omeprazole
--- NOTE | 2021-12-19 06:58 | W.PM.DSUDISC ---
Discharge Plan Disposition Patient Disposition: HOME Condition: Stable Discharge Details Reason For Visit: EGD Attending Provider: Madyson Beck Primary Care Provider: Maxx Gastelum Home Meds and New Rx's Prescriptions: New omeprazole 40 mg capsule,delayed release(DR/EC) 40 mg PO DAILY Qty: 30 3RF Continued melatonin 5 MG tablet 5 mg PO HS PRNQty: 30 0RF epinephrine [EpiPen 2-Zeeshan] 0.3 MG/0.3 ML auto-injector 0.3 mg IM PRN Qty: 1 1RF Rx Instructions: Give IM PRN for severe allergic reaction. loperamide [Imodium A-D] 2 mg capsule 2 mg PO Q6H PRNQty: 10 0RF Discontinued famotidine 40 mg tablet 40 mg PO DAILY 0RF Discharge Instructions Instructions: Diet for Stomach Ulcers and Gastritis (ED), Gastritis (DC), Esophagitis (DC) Additional Instructions: Findings: inflammation in the stomach and esophagus Follow up: 2 weeks in the office Medications: stop Pepcid and start Omeprazole Please call if you develop: fevers >101.5 Nausea or Vomiting Abdominal pain that is not transient Rectal bleeding that is more then a tbsp A hard abdomen and inability to pass gas DAY SURGERY UNIT POST ENDOSCOPY INSTRUCTIONS Instructions for everyone who is given Anesthesia: For your safety, please do the following for the next 24 Hours: a. Do not drive or operate dangerous equipment b. Do not drink alcohol beverages or use any recreational drugs for the first 24 hours or while taking pain medications. The medications in your body may have a reaction that can be dangerous. c. Do not make any important decisions or sign any important papers 1. Generally there are no restrictions on your activity after a day or so has gone by, but you may feel a bit fatigued for a few days. 2. After you arrive home you may have a light meal and return to a normal diet as you can tolerate it without feeling sick to your stomach. 3. After surgery, you may feel pain or discomfort. This should be only transient, but if it persists please contact your doctor. 4. If there are any questions regarding the findings of your procedure, please feel free to contact your doctor. 6. If you are unable to contact your doctor with a problem, contact the hospital at [phone]. 7. Continue all your regular medications unless directed otherwise. I understand the above instructions and have no questions. Signature of Patient or Responsible Adult Escort Date/Time Name of Responsible Adult Escort Signature of Nurse Date/Time Activity:: Activity as Tolerated Diet:: low acid Discharge Orders Discharge Orders: Discharge Order (Routine); Ordered 12/19/21 Ordered By: Madyson Bekc
[2021-12-19 07:52] VITALS: BP 120/74; PULSE 62; RESP 16; TEMP 36.5; O2SAT 100
[2021-12-19] MEDS: Lactated Ringers 1,000 ML 80 ML IV ×2 (08:07→09:18)
--- NOTE | 2021-12-19 08:25 | W.ANESPRE ---
General Info Date of Service Date Performed: 12/19/21 Height: 5 ft 9 in Weight: 74.5 kg Body Mass Index (BMI): 24.2 Surgical Procedure: Operation Date: 12/19/21 09:05 Proposed Procedure Side Surgeon p Gastroscopy Madyson Beck MD Meds Allergies and Home Medications Allergies Allergy/AdvReac Type Severity Reaction Status Date / Time shellfish derived Allergy Intermediate SWOLLEN Verified 12/19/21 07:48 LIPS AND PALATE Home Medication Medication Instructions Recorded melatonin 5 mg tablet 5 mg PO HS PRN #30 tab 08/13/14 epinephrine 0.3 mg/0.3 mL 0.3 mg IM PRN #1 pack 03/21/16 injection, auto-injector (EpiPen 2-Zeeshan) loperamide 2 mg capsule (Imodium 2 mg PO Q6H PRN #10 cap 09/30/21 A-D) famotidine 40 mg tablet 40 mg PO DAILY 12/06/21 Current Visit Medications: Current Medications Generic Name Dose Route Start Last Admin Trade Name Freq PRN Reason Stop Dose Admin Hyoscyamine Sulfate 0.125 mg 12/19/21 06:58 Hyoscyamine 0.125 Mg Sl/Oral/Chew SL DIRECTED PRN Ringer's Solution 1,000 mls @ 80 mls/hr 12/19/21 06:00 12/19/21 08:07 IV 01/15/22 23:59 80 mls/hr INFUSION OPHELIA Administration IV Miscellaneous Supplies 1 each 12/19/21 06:00 Iv Access IV 01/15/22 23:59 DIRECTED OPHELIA Ondansetron HCl 4 mg 12/19/21 06:58 Ondansetron 4 Mg/2 Ml Vial IVP Q4H PRN PRN Nausea / Vomiting Sodium Chloride 0 ml 12/19/21 06:00 Normal Saline Flush 10 Ml Syr IV 01/15/22 23:59 PRN PRN Sodium Chloride 0 ml 12/19/21 06:00 Normal Saline 10 Ml Vial IJ 01/15/22 23:59 DIRECTED PRN Sterile Water 0 ml 12/19/21 06:00 Water,Injection,Sterile 10 Ml Vial IJ 01/15/22 23:59 DIRECTED PRN PFSH Active Problems Active Problems: Problem Status Onset Code Diarrhea R19.7 Atypical chest pain R07.89 Epigastric pain R10.13 Medical History Medical History Attention deficit hyperactivity disorder, 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 nml labs. q 1 yr ultrasound Smoker in home dad, outside Thyroid nodule Surgical History Surgical History (Updated 12/19/21 @ 07:49 by Karen Perez) H/O wisdom tooth extraction Tobacco Smoking/Tobacco Use Status: Current every day Tobacco Type: e-cigarettes Alcohol Alcohol Intake: former Substance Use Substance use: Daily Substance use type: marijuana Details: Last use of cannabis 2344 on 12/18/21 Vital Signs and Lab Results Vital Signs Most Recent Vital Signs in EMR: Most Recent Vital Signs Temp Pulse Resp BP Pulse Ox 36.5 C 62 16 120/74 100 12/19/21 07:52 12/19/21 07:52 12/19/21 07:52 12/19/21 07:52 12/19/21 07:52 Lab Results Blood Type / Crossmatch: No Data to Display Complete Blood Count: White Blood Count 7.85 10^3/uL (4.4-10.8) 11/25/21 22:11/25/21 Red Blood Count 4.36 10^6/uL (4.36-5.78) 11/25/21 22:11/25/21 Hemoglobin 13.5 g/dL (13.5-17.5) 11/25/21 22:11/25/21 Hematocrit 39.6 % (40.0-50.0) L 11/25/21 22:11/25/21 Platelet Count 286 10^3/uL (130-400) 11/25/21 22:11/25/21 Complete Metabolic Panel: Sodium Level 140 mmol/L (136-145) 11/25/21 22:11/25/21 Potassium Level 3.7 mmol/L (3.5-5.1) 11/25/21:11/25/21 Chloride Level 105 mmol/L (98-107) 11/25/21 22:11/25/21 Carbon Dioxide Level 24.9 mmol/L (21.0-32.0) 11/25/21 22:11/25/21 Blood Urea Nitrogen 11 mg/dL (7-18) 11/25/21 22:11/25/21 Creatinine 0.7 mg/dL (0.70-1.30) 11/25/21:11/25/21 Estimated GFR/1.73 m2 >= 60.00 (mL/min/1.73m2) 11/25/21:11/25/21 Magnesium Level 2.1 mg/dL (1.8-2.4) 11/25/21:11/25/21 Calcium Level 8.9 mg/dL (8.5-10.1) 11/25/21:11/25/21 Albumin 4.0 g/dL (3.4-5.0) 11/25/21:11/25/21 Glucose Level 95 mg/dL (74-106) 11/25/21:11/25/21 Liver Function Panel: Alanine Aminotransferase (ALT/SGPT) 15 U/L (16-63) L 11/25/21:11/25/21 Aspartate Amino Transf (AST/SGOT) 13 U/L (15-37) L 11/25/21:11/25/21 Coagulation Panel: D-Dimer 125 ng/mlFEU (<500) 11/25/21:11/25/21 Cardiac Panel: Troponin I < 50 ng/L (<or=60) 11/25/21 Arterial Blood Gas: No Data to Display Venous Blood Gas: No Data to Display Pancreas Panel: No Data to Display Thyroid Panel: No Data to Display Infectious Disease: Coronavirus (COVID-19)(PCR) Negative (Negative) 12/16/21 08:45 12/16/21 Blood Cultures: No Data to Display Toxicology Panel: No Data to Display Imaging and Studies Imaging and Studies Study information below may be from another EMR and interpreted by another provider. Please see original notes in EMR for more complete details. EKG Summary: Conclusion Sinus rhythm...normal P axis, V-rate 60- 99 Atrial premature complex...SV complex w/ short R-R interval 11/25/21 Anesthesia Assessment and Plan Anesthesia History Personal History: No History of Anesthesia Complications Family History: No Family History of Anesthesia Complications Exercise Tolerance Exercise Tolerance: Metabolic Equivalents>4 Pertinent Negatives Pertinent Negatives: No Symptoms of GERD, No Major Cardiovascular Symptoms or Complaints and No Major Pulmonary Symptoms or Complaints Cardiac & Pulmonary Exam Cardiac Exam: Normal S1/S2 Heart Sounds Pulmonary Exam: Clear Bilateral Breath Sounds Implantable Cardiac Device Does patient have a Pacemaker or an ICD?: No Airway Exam Known Difficult Airway: No Mallampati Class: 2 Mouth Opening: Normal (> 3cm) Thyromental Distance: Greater than 3 cm Neck Range of Motion: Full ROM Neck Circumference: Normal Teeth Condition: Normal Dentition ASA Classification ASA Score: ASA 2 Emergency Case?: No NPO Status NPO Status: NPO Clears >2 hours, Solids >8 hours Anesthesia Plan Resuscitation Status: Full Code Anesthesia Technique: General Anesthesia Airway Planned: Natural Airway Monitors Used: Standard Monitors
[2021-12-19 08:53] VITALS: BMI 24.2
--- NOTE | 2021-12-19 09:14 | STOM_PTH ---
PATIENT: Ventura Quiroz LOC: [place] U#:[id number] AGE/SX: 21/M ROOM: RE12/19/[address]: Madyson Beck MD : 2000 BED: DIS: 12/19/2021 SPEC #: [id number] RECD: 12/19/21 12:46 STATUS: APURVA REQ #: [id number] ISA: 12/19/21 09:[address]: Madyson Beck DEPT: Surgical Specimen RECD BY: Kellee Acosta ENTERED: 12/19/21 12:48 SP TYPE: STOMACH OTHR DR: Maxx Gastelum Tissues: 1 - BIOPSY BOWEL 2 - STOMACH BIOPSY 3 - ESOPHAGUS BIOPSY Procedures: GROSS AND MICRO LEVEL 4 Comments: [id number]
[2021-12-19 09:25] VITALS: BP 118/71; PULSE 83; RESP 16; TEMP 37; O2SAT 95
[2021-12-19 09:55] VITALS: BP 121/75; PULSE 60; RESP 18; TEMP 36.4; O2SAT 100
--- NOTE | 2021-12-19 10:08 | W.ANESPOSTOP ---
Postoperative Evaluation Date, Time and Location Date Performed: 12/19/21 Time Performed: : Patient Location: Day Surgery Unit Vital Signs Most Recent Imported Vital Signs: Most Recent Vital Signs Temp Pulse Resp BP Pulse Ox 37 C 83 16 118/71 95 12/19/21 09:25 12/19/21 09:25 12/19/21 09:25 12/19/21 09:25 12/19/21 09:25 Pain Score Most Recent Pain Score: Most Recent Pain Score Pain Level 0 12/19/21 09:25 Assessment Mental Status: Awake (Alert & Oriented to Patient Baseline) Airway and Respiratory Function: Patent airway with normal (patient baseline) respiratory exam Cardiovascular Function: Hemodynamically Stable Hydration Status: Adequately Hydrated Nausea & Vomiting: No Nausea or Vomiting Pain: Pain is tolerable per patient (Slightly sore throat) Peripheral Nerve Block: Patient did not receive a nerve block
== END 2021-12-19 10:17 | disposition home or self-care (01) ==
LOC: SUR 07:31
PROVIDERS: PCP Family Medicine; Visit Provider Surgery
PROC: 0DJ68ZZ Inspection of Stomach, Via Natural or Artificial Opening Endoscopic (ICD-10-PCS; CPT 43235; principal; 2021-12-19 09:00)
DX: R10.13 Epigastric pain (principal); R07.89 Other chest pain; K20.90 Esophagitis, unspecified without bleeding; K29.70 Gastritis, unspecified, without bleeding; K22.89 Other specified disease of esophagus
CPT/HCPCS: 43239; 88305; J2001; J2405

== ENCOUNTER 2022-10-25 13:24 | Emergency (ER) | payer BC, SELFPAY ==
[2022-10-25 13:33] VITALS: BP 158/90; PULSE 88; TEMP 37; O2SAT 100
--- NOTE | 2022-10-25 13:45 | RT.EKG_ITS ---
APPROVED REPORT Exam: Resting ECG Reason for Exam: chest pain Patient Location: E HR:86 bpm ECG Measurements Heart Rate 86 AXIS NJ 150 P 71 QRSd 96 QRS 43 QT 368 T 58 QTc 441 Conclusion Sinus rhythm...normal P axis, V-rate 60- 99 ST elev, probable normal early repol pattern...ST elevation, age<55
[2022-10-25 13:57] VITALS: RESP 20
--- NOTE | 2022-10-25 14:02 | ED.GENADUL_ITS ---
Discharge Plan Disposition Patient Disposition: Home Condition: Stable Discharge Details Clinical Impression: Marijuana abuse, Chest pain Primary Care Provider: Maxx Gastelum ED Provider: Kellee Galicia Home Meds and New Rx's Prescriptions: Continued melatonin 5 MG tablet 5 mg PO HS PRNQty: 30 epinephrine [EpiPen 2-Zeeshan] 0.3 MG/0.3 ML auto-injector 0.3 mg IM PRN Qty: 1 Rx Instructions: Give IM PRN for severe allergic reaction. omeprazole 40 mg capsule,delayed release(DR/EC) See Rx Instructions .ROUTE .COMPLEX Qty: 30 3RF Dose Instruction: TAKE ONE CAPSULE BY MOUTH EVERY DAY Rx Instructions: TAKE ONE CAPSULE BY MOUTH EVERY DAY Discharge Instructions Instructions: Chest Pain (ED) Additional Instructions: Work on cutting down on your marijuana use as it may precipitate the anxiety that you are experiencing Please follow-up with your primary care physician Return earlier should you have new or worsening complaints R8 bradycardia Marie Referrals: Maxx Gastelum [Primary Care Provider] - Discharge Data Discharge Date/Time-TO BE ENTERED AT DEPARTURE: 10/25/22 18:25 Medical Decision Making <Fercho Garcia NP - Last Filed: 11/01/22 08:31> Patient presenting to the emergency department for chief complaint of anxiety. Patient states this is probably secondary to him smoking some marijuana but does state he has been drinking also today. Patient did start having some nausea and vomiting along with some left-sided chest pain. Physical exam is unremarkable beyond significantly noted anxious patient with tachypnea and tachycardia. We will plan on checking labs chest x-ray and EKG due to patient stating left-sided chest pain and nausea. Pending results we will give patient IV fluids and At shan. Please see physician interpretation for full interpretation of EKG but patient is in sinus rhythm, rate of 86, signs of early repull and I do not feel that patient has acute STEMI findings but will continue to monitor. Reviewed patient's labs and CBC is nondiagnostic none worrisome, CMP shows slightly elevated glucose 116, mag 1.7, AST of 50 otherwise unremarkable. TSH is within normal range, urinalysis shows slight amount of ketones and high urobilinogen but again otherwise negative. Patient still pending UDS. Patient negative for any alcohol noted in system at this time. Reviewed chest x-ray and radiologist interpretation that shows no acute findings. Imaging Data Radiologic Study: Imaging: X-Ray Radiologist's impression: EXAM: XR CHEST 2V PA LATERAL CLINICAL HISTORY: chest pain TECHNIQUE: 2D digital imaging was performed. COMPARISON: CR,XR XR CHEST 2V PA LATERAL from 11/25/2021 FINDINGS: HEART: Normal size. Aorta: Not dilated. PULMONARY VASCULATURE: Normal. LUNGS: Clear. PLEURAL SPACE: No pleural effusion or pneumothorax. BONE:Unremarkable for age. IMPRESSION: No acute abnormality. <SHALINI Liriano - Last Filed: 10/26/22 09:14> Patient presenting to the emergency department for chief complaint of anxiety. Patient states this is probably secondary to him smoking some marijuana but does state he has been drinking also today. Patient did start having some nausea and vomiting along with some left-sided chest pain. Physical exam is unremarkable beyond significantly noted anxious patient with tachypnea and tachycardia. We will plan on checking labs chest x-ray and EKG due to patient stating left-sided chest pain and nausea. Pending results we will give patient IV fluids and Ativan. Please see physician interpretation for full interpretation of EKG but patient is in sinus rhythm, rate of 86, signs of early repull and I do not feel that patient has acute STEMI findings but will continue to monitor. Reviewed patient's labs and CBC is nondiagnostic none worrisome, CMP shows slightly elevated glucose 116, mag 1.7, AST of 50 otherwise unremarkable. TSH is within normal range, urinalysis shows slight amount of ketones and high urobilinogen but again otherwise negative. Patient still pending UDS. Patient negative for any alcohol noted in system at this time. Reviewed chest x-ray and radiologist interpretation that shows no acute fin dings. Care is accepted and transition from Etienne Garcia nurse practitioner at 1600 pending repeat troponin, repeat troponin was performed at 1715 and remains below 50 with high-sensitivity troponin, patient is completely asymptomatic without chest pain or shortness of breath He request discharge home Discussion regarding cessation of marijuana use was recommended Recommendation for reassessment with primary care physician thank you Return precautions reviewed and patient expressed understanding HPI <Fercho Garcia NP - Last Filed: 11/01/22 08:31> General Mode of arrival: ambulatory . Date/Time Provider Initiated Documentation: 10/25/22 13:50 . Limitations to Documentation: no limitations . Information obtained by: patient and RN notes reviewed . History of Present Illness 22 year old M presents to the emergency department with the chief complaint of Anxiety, left sided chest pain, described as moderate and severe, with intensity rated at 6. Quality is described as aching, and is localized to the chest. Patient reports no radiation. Patient started experiencing this hour(s) (1) and it has been constant. No relieving factors improve symptom(s), Other factors that worsen symptoms (Smoking marijuana) . Patient notes no other symptoms.. Patient did receive the following treatments prior to arrival, none Related Data Home Medications Medication Instructions Recorded Confirmed melatonin 5 mg tablet 5 mg PO HS PRN #30 tabs 08/13/14 10/25/22 epinephrine 0.3 mg/0.3 mL 0.3 mg IM PRN ##1 03/21/16 10/25/22 injection, auto-injector (EpiPen 2-Zeeshan) omeprazole 40 mg capsule,delayed See Rx Instructions .Route 08/14/22 10/25/22 release .COMPLEX #30 caps Previous Rx's Medication Instructions Recorded omeprazole 40 mg capsule,delayed See Rx Instructions .Route 08/14/22 release .COMPLEX #30 caps Allergies Allergy/AdvReac Type Severity Reaction Status Date / Time shellfish derived Allergy Intermediate SWOLLEN Verified 10/25/22 13:36 LIPS AND PALATE General Stated Complaint: Anxiety GWENDOLYN: 3 Review of Systems <Fercho Garcia NP - Last Filed: 11/01/22 08:31> Constitutional Constitutional: Denies chills, Denies fever(s), Denies headache(s), Denies lethargy and Denies malaise ENT Ears, Nose, Mouth, and Throat: Denies dizziness, Denies headache(s) and Denies nasal congestion Cardiovascular Cardiovascular: Reports chest pain, Denies syncope, Denies lightheadedness and Reports dyspnea Respiratory Respiratory: Denies cough and Reports dyspnea Gastrointestinal Gastrointestinal: Denies abdominal pain, Reports nausea and Reports vomiting Musculoskeletal Musculoskeletal: Denies back pain Neurologic Neurologic: Denies dizziness, Denies syncope and Denies headache(s) Psychiatric Psychiatric: Reports as per HPI, Reports anxiety and Reports panic attacks PFS <Fercho Garcia NP - Last Filed: 11/01/22 08:31> All Active Problems (Updated 10/25/22 @ 18:04 by SHALINI Liriano) Diarrhea (Acute) Epigastric pain (Acute) Marijuana abuse (Acute) Chest pain (Acute) Medical History Attention deficit hyperactivity disorder, 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 labs. [place] 1 yr ultrasound Smoker in home dad, outside Thyroid nodule Surgical History H/O wisdom tooth extraction Family History Mother Mental disorder depression and anxiety, Bipolar Father Heart disease [place] age 47 Hyperlipidemia Maternal Aunt Neoplasm Social History Smoking/Tobacco Use Status: Current every day Tobacco Type: e-cigarettes Smoking risk assessment performed?: Yes Alcohol Intake: former Drug use: Daily Substance use type: marijuana Details: Last use of cannabis 6127 on 12/18/21 Current gender identity: male Do you feel safe at home: Yes Do you feel safe in your relationship?: Yes Additional Social history: Unable to assess privatley Exam <Fercho Garcia NP - Last Filed: 11/01/22 08:31> Const General: cooperative, healthy appearing, anxious, not diaphoretic and not ill appearing Nutritional Appearance: average body habitus Orientation: alert, awake and oriented x3 Limitations: mental status not altered Neck Neck: normal visual inspection, full ROM, trachea midline, supple and no anterior neck swelling Chest Chest: normal inspection of the chest, normal palpation of entire chest wall and no tenderness Resp Effort & Inspection: able to speak in complete sentences and tachypneic Auscultation: clear to auscultation bilaterally Cardio Jugular venous pressure: no JVD Palpation: normal PMI Rate: tachycardic Rhythm: regular rhythm Heart Sounds: S1 normal, S2 normal, no click, no gallops, no murmurs and no rubs Pulses: radial pulses present bilaterally 2+ GI Inspection: normal to inspection Palpation: soft, no aortic enlargement, no pulsatile masses and nontender Auscultation: normal bowel sounds Skin General skin exam: no rashes or lesions noted Neuro General: patient alert, patient awake, patient oriented x3, tone normal and moves all extremities Course <Fercho Garcia NP - Last Filed: 11/01/22 08:31> Vital Signs Vital signs: Vital Signs Temperature 37.0 C 10/25/22 13:33 Pulse 88 10/25/22 13:33 Blood Pressure 158/90 H 10/25/22 13:33 Pulse Oximetry 100 10/25/22 13:33 Temperature 37.0 C 10/25/22 13:33 Temperature Source Skin 10/25/22 13:33 Pulse 88 10/25/22 13:33 Respiratory Rate 20 10/25/22 13:57 Respiratory Effort Non-Labored 10/25/22 13:57 Respiratory Depth Normal 10/25/22 13:57 Respiratory Pattern Normal 10/25/22 13:57 Blood Pressure 158/90 H 10/25/22 13:33 Blood Pressure Position Sitting 10/25/22 13:33 Pulse Oximetry 100 10/25/22 13:33 Oxygen Delivery Method Room Air 10/25/22 13:33 Oxygen Flow Rate 0 10/25/22 13:33 Pain Level 0 10/25/22 13:33 Sign Out <Fercho Garcia NP - Last Filed: 11/01/22 08:31> Sign Out Data: Sign Out Comment: Patient pending second troponin and reassessment for anxiety secondary to marijuana usage Last updated by Fercho Garcia NP at 10/25/22 15:30 PAWSS <Fercho Garcia NP - Last Filed: 11/01/22 08:31> Have you Been Recently Intoxicated or Drunk Within the Last 30 days?: Yes Have you Ever Experienced Previous Episodes of Alcohol Withdrawal?: Yes Have you ever Experienced Withdrawal Seizures?: No Have you ever Experienced Delirium Tremens(DT)s?: No Have you ever undergone Alcohol Rehabilitation Treatment (i.e, inpt ot outpatient treatment programs)?: No Have you ever Experienced Blackouts?: Yes Have you ever Combined Alcohol with other Downers within the last 90 days?: Yes Have you ever Combined Alcohol with any other Substance of Abuse during the last 90 days?: No Positive Blood Alcohol level on Presentation? [PCS.BAL]: No Evidence of Increased Autonomic Activity (i.e. HR>120, tremor, sweating, agitation, nausea)?: No Result: 3 <SHALINI Liriano - Last Filed: 10/26/22 09:14> Result: 3
[2022-10-25] MEDS: Ondansetron 4 MG/2 ML VIAL IVP (14:27)
[2022-10-25] MEDS: LORazepam 2 MG/ML VIAL 1 MG IVP (14:27)
[2022-10-25 14:28] LABS: Abs Immature Grans 0.01 10^3/uL (0.0-0.06); Absolute Basophil Count 0.03 10^3/uL (0.0-0.2); Absolute Eosinophil Count 0.03 10^3/uL (0.0-0.7); Absolute Lymphocyte Count 0.92 10^3/uL (1.2-3.4); Absolute Monocyte Count 0.45 10^3/uL (0.1-0.8); Absolute Neutrophil Count 3.89 10^3/uL (1.2-6.7); Basophils % 0.6; Eosinophils % 0.6; HCT 40.7 % (40.0-50.0); HGB 14.8 g/dL (13.5-17.5); Immature Grans % 0.2; Lymphocytes % 17.3; MCH 32.9 pg (27.0-33.0); MCHC 36.4 % (32.0-36.0); MCV 90 fL (80-95); MPV 8.1 fL (8.0-11.0); Monocytes % 8.4; Neutrophils % 72.9; Platelet Count 224 10^3/uL (130-400); RDW 11.6 % (11.8-14.1); RDW-SD 38.4 fL; WBC 5.33 10^3/uL (4.4-10.8)
[2022-10-25] MEDS: Normal Saline 1,000 ML 1000 ML IV (14:35)
[2022-10-25 14:51] LABS: Bilirubin Negative (Negative); Blood Negative (Negative); Clarity Clear (Clear); Glucose Negative (Negative); Ketones Trace mg/dL (Negative); Leukocyte Esterase Negative (Negative); Nitrite Negative (Negative); pH 8.5 (5-8)
[2022-10-25 14:52] LABS: ALT 47 U/L (16-63); AST 50 U/L (15-37); Albumin 4.1 g/dL (3.4-5.0); Alkaline Phosphatase 101 U/L (46-116); Anion Gap 8.5 mmol/L (3-11); BUN 7 mg/dL (7-18); Bilirubin, Total 0.9 mg/dL (0.2-1.0); CO2 25.5 mmol/L (21.0-32.0); CREATININE 0.8 mg/dL (0.70-1.30); Calcium 8.6 mg/dL (8.5-10.1); Chloride 103 mmol/L (98-107); Estimated GFR 128.33 (mL/min/1.73m2); Glucose 116 mg/dL (74-106); Magnesium 1.7 mg/dL (1.8-2.4); Potassium 3.5 mmol/L (3.5-5.1); Sodium 137 mmol/L (136-145); TSH (W/Ref FT4) 1.19 uIU/mL (0.36-3.74); Total Protein 7.3 g/dL (6.4-8.2); Troponin I < 50 ng/L (<or=60)
[2022-10-25 14:54] LABS: ETHANOL BLOOD < 3.0 mg/dL (<10)
[2022-10-25 15:05] LABS: Bacteria Negative HPF (Negative); C & S Indicated? No; Casts 0-2 Hyaline LPF (Negative); Crystals Negative HPF (Negative); Epithelial Cells Rare HPF (Negative); Mucus Trace (Negative); RBC Negative HPF (0-2); WBC Negative HPF (0-5)
[2022-10-25] MEDS: Magnesium Oxide 400 MG TAB PO (15:15)
[2022-10-25 15:20] LABS: *AMPHETAMINES SCREEN URINE Negative (Negative); *BARBITURATES SCREEN URINE Negative (Negative); *BENZODIAZEPINES SCREEN URINE Negative (Negative); Cannabinoids THC Positive (Negative); Cocaine Screen,Urine Negative (Negative); METHADONE URINE SCREEN Negative (Negative); OPIATES URINE SCREEN Negative (Negative)
[2022-10-25 15:22] LABS: Tricyclic Antidepressants Negative (Negative)
[2022-10-25 17:46] LABS: Troponin I < 50 ng/L (<or=60)
[2022-10-25 18:14] VITALS: BP 128/72; PULSE 88; RESP 18; TEMP 36.6; O2SAT 98
== END 2022-10-25 18:25 | disposition home or self-care (01) ==
PROVIDERS: Nurse Practitioner Family; Emergency Provider Physician Assistant; PCP Family Medicine
DX: R07.9 Chest pain, unspecified (principal); F12.10 Cannabis abuse, uncomplicated; R11.2 Nausea with vomiting, unspecified; R00.0 Tachycardia, unspecified; R06.82 Tachypnea, not elsewhere classified; F41.9 Anxiety disorder, unspecified; R73.09 Other abnormal glucose; F90.0 Attention-deficit hyperactivity disorder, predominantly inattentive type
CPT/HCPCS: 36415; 80053; 80307; 93005; 96361; 96374; 96375; 99284; 71046; 80320; 81003; 81015; 83735; 84443; 84484; 85025; 93010; J2060; J2405

== ENCOUNTER 2023-02-07 17:23 | Outpatient (REF) | payer BC, SELFPAY ==
[2023-02-07 19:38] LABS: Abs Immature Grans 0.02 10^3/uL (0.0-0.06); Absolute Basophil Count 0.04 10^3/uL (0.0-0.2); Absolute Eosinophil Count 0.21 10^3/uL (0.0-0.7); Absolute Lymphocyte Count 1.57 10^3/uL (1.2-3.4); Absolute Monocyte Count 0.55 10^3/uL (0.1-0.8); Basophils % 0.6; Eosinophils % 2.9; HCT 41.2 % (40.0-50.0); HGB 14.5 g/dL (13.5-17.5); Immature Grans % 0.3; Lymphocytes % 21.8; MCH 31.9 pg (27.0-33.0); MCHC 35.2 % (32.0-36.0); MCV 91 fL (80-95); MPV 9.1 fL (8.0-11.0); Monocytes % 7.6; Neutrophils % 66.8; Platelet Count 296 10^3/uL (130-400); RBC 4.54 10^6/uL (4.36-5.78); RDW 11.8 % (11.8-14.1); RDW-SD 39.2 fL; WBC 7.19 10^3/uL (4.4-10.8)
[2023-02-07 20:01] LABS: ALT 33 U/L (16-63); AST 25 U/L (15-37); Albumin 4.1 g/dL (3.4-5.0); Alkaline Phosphatase 80 U/L (46-116); Anion Gap 9.9 mmol/L (3-11); BUN 10 mg/dL (7-18); Bilirubin, Total 0.5 mg/dL (0.2-1.0); CO2 24.1 mmol/L (21.0-32.0); CREATININE 0.8 mg/dL (0.70-1.30); Calcium 8.8 mg/dL (8.5-10.1); Chloride 106 mmol/L (98-107); Estimated GFR 128.33 (mL/min/1.73m2); Glucose 94 mg/dL (74-106); Potassium 4.3 mmol/L (3.5-5.1); Sodium 140 mmol/L (136-145); Total Protein 7.2 g/dL (6.4-8.2)
== END 2023-02-07 17:24 | disposition home or self-care (01) ==
LOC: NCHCN 17:23
PROVIDERS: PCP Family Medicine; Visit Provider Family Medicine
DX: K70.10 Alcoholic hepatitis without ascites (principal)
CPT/HCPCS: 80053; 85025

== ENCOUNTER 2023-04-12 16:12 | Emergency (ER) | payer BC, SELFPAY ==
[2023-04-12 16:14] VITALS: BP 134/93; PULSE 91; RESP 18; TEMP 36.5; O2SAT 98
--- NOTE | 2023-04-12 16:56 | ED.GENADUL_ITS ---
Discharge Plan Disposition Patient Disposition: Home Condition: Stable Discharge Details Clinical Impression: Nausea, Alcohol abuse, Anxiety Primary Care Provider: Maxx Gastelum ED Provider: Margret Plata Home Meds and New Rx's Prescriptions: No Action epinephrine [EpiPen 2-Zeeshan] 0.3 MG/0.3 ML auto-injector 0.3 mg IM PRN Qty: 1 Rx Instructions: Give IM PRN for severe allergic reaction. omeprazole 40 mg capsule,delayed release(DR/EC) See Rx Instructions .ROUTE .COMPLEX Qty: 30 12RF Dose Instruction: TAKE ONE CAPSULE BY MOUTH EVERY DAY Rx Instructions: TAKE ONE CAPSULE BY MOUTH EVERY DAY Discharge Instructions Instructions: Abuse of Alcohol (ED), Acute Nausea and Vomiting (ED), Anxiety (ED) Referrals: Maxx Gastelum [Primary Care Provider] - Discharge Data Discharge Physician: Margret Plata Medical Decision Making 22-year-old male with history of alcohol abuse presents for evaluation of GI upset and muscle spasms. At time of my evaluation he does not have any nausea or vomiting. There are no muscle spasms. I did offer Librium however patient declined. Have discussed that muscle spasms could be secondary to his frequent diarrhea after drinking. Patient states that he is hoping to remain sober and plans on starting the naltrexone. Laboratory studies are unremarkable. Patient hydrated with IV fluids. He is reassured with the findings. I have encouraged him to start taking the nalxtrone and to discontinue alcohol use. He understands indications to return. HPI General Date/Time Provider Initiated Documentation: 04/12/23 16:15 . HPI Narrative: 22-year-old male with history of significant alcohol use presents for evaluation of muscle spasms and GI upset. Patient states that he has been taking omeprazole for the last year. He read today that omeprazole can cause muscle spasms. He states that over the last couple of months he gets spasms in his thighs at least 2-3 times a week. He does admit to heavy alcohol use and diarrhea. He states that his last alcoholic beverage was yesterday morning. He did have 2 nonalcoholic beers afterward. He has been prescribed some naltrexone but did not start taking it. He has had difficulty with GI upset with alcohol withdrawal in the past. He denies any history of alcohol withdrawal seizures. He has not taken Librium. He does have history of anxiety. He states that he was worried that he might be getting sick as his throat was a little sore today. He also thinks that he occasionally has difficulty with his breathing. He does have a history of smoking and vaping. Denies any fevers or chills at this time. No chest pain at this time. No abdominal pain. Related Data Home Medications Medication Instructions Recorded Confirmed epinephrine 0.3 mg/0.3 mL 0.3 mg IM PRN ##1 03/21/16 04/12/23 injection, auto-injector (EpiPen 2-Zeeshan) omeprazole 40 mg capsule,delayed See Rx Instructions .Route 12/19/22 04/12/23 release .COMPLEX #30 caps Previous Rx's Medication Instructions Recorded omeprazole 40 mg capsule,delayed See Rx Instructions .Route 12/19/22 release .COMPLEX #30 caps Allergies Allergy/AdvReac Type Severity Reaction Status Date / Time shellfish derived Allergy Intermediate SWOLLEN Verified 04/12/23 16:20 LIPS AND PALATE General Stated Complaint: Anxiety GWENDOLYN: 3 Review of Systems Narrative: Remainder of review of systems otherwise negative except as in the HPI x10. 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 nml labs. q 1 yr ultrasound Smoker in home dad, outside Thyroid nodule Surgical History H/O wisdom tooth extraction Family History Mother Mental disorder depression and anxiety, Bipolar Father Heart disease [place] age 47 Hyperlipidemia Maternal Aunt Neoplasm Social History Smoking/Tobacco Use Status: Current every day Tobacco Type: e-cigarettes Smoking risk assessment performed?: Yes Alcohol Intake: current Alcohol type: hard liquor Drug use: Daily Substance use type: marijuana Details: Last use of cannabis 2344 on 12/18/21 Current gender identity: male Do you feel safe at home: Yes Do you feel safe in your relationship?: Yes Exam Narrative Exam Narrative: General: non-toxic, no respiratory distress, comfortable HEENT: normocephalic, atraumatic, lids and lashes normal, PERRL, EOMI, anicteric sclera, no conjunctival injection, moist oral mucosa Card: regular rate and rhythm, S1S2, no murmurs, rubs, or gallops Lungs: good air entry, clear to auscultation bilaterally. no wheezes, rales, rhonchi, or retractions Abd: soft, non-tender, non-distended, normal bowel sounds, no rebound or gua rding, no peritoneal signs Musculoskeletal: full range of motion of arms and legs, no tenderness to palpation. no clubbing, cyanosis, or edema Neurologic: appropriate for age, strength normal Psych: alert and oriented Skin: no petechiae, no lesions, warm and dry Course Vital Signs Vital signs: Vital Signs Temperature 36.5 C 04/12/23 16:14 Pulse 91 H 04/12/23 16:14 Respiratory Rate 18 04/12/23 16:14 Blood Pressure 134/93 H 04/12/23 16:14 Pulse Oximetry 98 04/12/23 16:14 Temperature 36.5 C 04/12/23 16:14 Temperature Source Skin 04/12/23 16:14 Pulse 91 H 04/12/23 16:14 Respiratory Rate 18 04/12/23 16:14 Respiratory Effort Short of Breath 04/12/23 16:51 Blood Pressure 134/93 H 04/12/23 16:14 Blood Pressure Position Sitting 04/12/23 16:14 Pulse Oximetry 98 04/12/23 16:14 Oxygen Delivery Method Room Air 04/12/23 16:14 Oxygen Flow Rate 0 04/12/23 16:14 Pain Level 0 04/12/23 16:14
[2023-04-12] MEDS: Ondansetron 4 MG/2 ML VIAL IVP (17:21)
[2023-04-12] MEDS: Normal Saline 1,000 ML 1000 ML IV (17:21)
[2023-04-12 17:23] LABS: Abs Immature Grans 0.03 10^3/uL (0.0-0.06); Absolute Basophil Count 0.04 10^3/uL (0.0-0.2); Absolute Eosinophil Count 0.05 10^3/uL (0.0-0.7); Absolute Monocyte Count 0.56 10^3/uL (0.1-0.8); Absolute Neutrophil Count 6.22 10^3/uL (1.2-6.7); Basophils % 0.5; Eosinophils % 0.6; HGB 15.6 g/dL (13.5-17.5); Immature Grans % 0.4; Lymphocytes % 14.8; MCH 32.1 pg (27.0-33.0); MCHC 36.3 % (32.0-36.0); MCV 89 fL (80-95); MPV 8.4 fL (8.0-11.0); Monocytes % 6.9; Neutrophils % 76.8; Platelet Count 271 10^3/uL (130-400); RBC 4.86 10^6/uL (4.36-5.78); RDW 11.7 % (11.8-14.1); RDW-SD 37.6 fL
[2023-04-12 17:41] LABS: ALT 68 U/L (16-63); AST 43 U/L (15-37); Albumin 4.5 g/dL (3.4-5.0); Alkaline Phosphatase 87 U/L (46-116); Anion Gap 10.8 mmol/L (3-11); BUN 8 mg/dL (7-18); Bilirubin, Total 0.8 mg/dL (0.2-1.0); CO2 24.2 mmol/L (21.0-32.0); CREATININE 0.8 mg/dL (0.70-1.30); Calcium 9.4 mg/dL (8.5-10.1); Chloride 105 mmol/L (98-107); Estimated GFR 128.33 (mL/min/1.73m2); Glucose 103 mg/dL (74-106); Potassium 3.5 mmol/L (3.5-5.1); Sodium 140 mmol/L (136-145); Total Protein 8.1 g/dL (6.4-8.2)
[2023-04-12 17:43] VITALS: RESP 16
[2023-04-12 17:43] LABS: ETHANOL BLOOD < 3.0 mg/dL (<10)
[2023-04-12 18:08] VITALS: PULSE 75; O2SAT 98
== END 2023-04-12 18:09 | disposition home or self-care (01) ==
PROVIDERS: Emergency Provider Emergency Medicine Emergency Medical Services; PCP Family Medicine
DX: F41.9 Anxiety disorder, unspecified (principal); F10.10 Alcohol abuse, uncomplicated; R11.0 Nausea
CPT/HCPCS: 80053; 96361; 96374; 99284; 80320; 83735; 85025; J2405

== ENCOUNTER → 2023-09-27 02:57 | Outpatient (CLI) | payer BC, SELFPAY ==
--- NOTE | 2023-09-27 07:15 | DI.US_ITS ---
Exam(s) US BREAST RT LIMITED MG MAMMO DIAGNOSTIC BI EXAM: MG MAMMO DIAGNOSTIC BI CLINICAL HISTORY: rt breast mass,n63.10. COMPARISON: No exams were available for comparison TECHNIQUE: Craniocaudal and mediolateral oblique Full Field Digital Mammography views of both breast s with Computer Aided Diagnosis followed by Tomosynthesis and right breast ultrasound. FINDINGS: Mammography/Tomosynthesis: Masses/Architectural Distortion: None seen. Mild gynecomastia subareolar region right breast. Left breast is normal. Microcalcifications: No suspicious pleomorphic-type are seen. Skin Thickening/Nipple Retraction: None. Right breast US: Echotexture: Mild breast tissue development in the subareolar region. Shadowing: No suspicious foci. Cyst: None. Solid lesions: None seen. Ductal dilation: None. IMPRESSION: 1. No evidence of malignancy is noted. Findings consistent with mild right gynecomastia. BI-RADS Category 2 - Benign Findings Breast Density - Category A - Almost entirely fatty A negative radiographic report should not delay biopsy if a dominant or clinically suspicious mass is present. Up to ten percent of cancers are not identified on mammography. A negative report may reinforce clinical impression. Adenosis and dense breasts may obscure an underlying neoplasm. False positive reports average 6 to 10%. Patient will receive a letter notifying them of these results.
== END ==
PROVIDERS: PCP Family Medicine; Visit Provider Nurse Practitioner Family
DX: N63.15 Unspecified lump in the right breast, overlapping quadrants (principal)
CPT/HCPCS: 76642; 77062; 77066; G0279

== ENCOUNTER 2024-11-18 03:12 | Outpatient (CLI) | payer BC, SELFPAY ==
[2024-11-18 14:10] LABS: Abs Immature Grans 0.03 10^3/uL (0.0-0.06); Absolute Basophil Count 0.07 10^3/uL (0.0-0.2); Absolute Eosinophil Count 0.14 10^3/uL (0.0-0.7); Absolute Lymphocyte Count 2.41 10^3/uL (1.2-3.4); Absolute Monocyte Count 0.46 10^3/uL (0.1-0.8); Absolute Neutrophil Count 4.44 10^3/uL (1.2-6.7); Basophils % 0.9 %; Eosinophils % 1.9 %; HCT 41.7 % (40.0-50.0); HGB 14.8 g/dL (13.5-17.5); Immature Grans % 0.4 %; Lymphocytes % 31.9 %; MCH 30.9 pg (27.0-33.0); MCHC 35.5 % (32.0-36.0); MCV 87 fL (80-95); MPV 9.1 fL (8.0-11.0); Monocytes % 6.1 %; Neutrophils % 58.8 %; Platelet Count 349 10^3/uL (130-400); RBC 4.79 10^6/uL (4.36-5.78); RDW 11.7 % (11.8-14.1); RDW-SD 37.2 fL; WBC 7.55 10^3/uL (4.4-10.8)
[2024-11-18 14:26] LABS: ALT 28 U/L (16-63); AST 13 U/L (15-37); Albumin 4.2 g/dL (3.4-5.0); Alkaline Phosphatase 86 U/L (46-116); Anion Gap 7.5 mmol/L (3-11); BUN 5 mg/dL (7-18); Bilirubin, Total 0.43 mg/dL (0.2-1.0); CO2 26.5 mmol/L (21.0-32.0); CREATININE 0.8 mg/dL (0.70-1.30); Calcium 9.2 mg/dL (8.5-10.1); Chloride 108 mmol/L (98-107); Estimated GFR 126.74 (mL/min/1.73m2); Glucose 95 mg/dL (74-106); Lipase 51 U/L (<78); Potassium 3.8 mmol/L (3.5-5.1); Sodium 142 mmol/L (136-145); Total Protein 7.4 g/dL (6.4-8.2)
== END 2024-11-18 03:13 | disposition home or self-care (01) ==
PROVIDERS: PCP Student in an Organized Health Care Education/Training Program; Visit Provider Physician Assistant
DX: R10.13 Epigastric pain (principal)
CPT/HCPCS: 36415; 80053; 83690; 85025

== ENCOUNTER 2025-05-26 18:24 | Emergency (ER) | payer BC, SELFPAY ==
[2025-05-26 18:25] VITALS: BP 130/84; PULSE 71; RESP 18; TEMP 36.6; O2SAT 98
[2025-05-26] MEDS: Lidocaine/Epinephri/Tetracaine Topical Gel 3 ML TP (18:55)
--- NOTE | 2025-05-26 19:15 | DI.CT_ITS ---
Exam(s) CT HEAD FACIAL WO EXAM: CT HEAD FACIAL WO CLINICAL HISTORY: Syncope, Chin injury. TECHNIQUE: Imaging Protocol: Axial computed tomography images with coronal and sagittal reformatted images were created and reviewed COMPARISON: No exams were available for comparison FINDINGS: CT Head: Ventricles and Extra axial spaces: Normal in size and morphology for the patient's age. Hemorrhage: None. Cerebral parenchyma: Normal. Midline shift: None. Brainstem/Cerebellum: Normal. Calvarium: Normal. Visualized Paranasal sinuses/Mastoids: There is ossification of a few ethmoid air cells. The remaining visualized paranasal sinuses are clear. Soft Tissues: Unremarkable. CT Face: Facial Bones: No definite fracture is noted in facial bones. Sinuses and Mastoids: There is opacification of a few ethmoid air cells. The remaining visualized paranasal sinuses and mastoid air cells are clear. There is mild mucosal thickening in the floor of the maxillary sinuses. Globes, extraocular muscles, optic nerves and retrobulbar fat: Normal. Upper aerodigestive tract: Normal. Mandible and bilateral temporomandibular joints: Normal. Soft tissues: Normal. IMPRESSION: 1. No acute intracranial process. 2. No acute facial fracture. 3. The preliminary [facility] report was reviewed. RADIATION DOSE DELIVERED: 1,904.89mGy.cm Total DLP DATA REPOSITORY: All CT scans at this facility are submitted to the National Radiology Data Registry (NRDR) Dose Index Registry (DIR) with the [employer] (A[employer]). RADIATION OPTIMIZATION: All CT scans at this facility use at least one of these dose optimization techniques: automated exposure control; mA and/or kV adjustment per patient size (includes targeted exams where dose is matched to clinical indication); or iterative reconstruction.
--- NOTE | 2025-05-26 19:21 | ED.GENADUL_ITS ---
Discharge Plan Disposition Patient Disposition: Home Condition: Stable Discharge Details Clinical Impression: Syncope, Chin laceration, Closed head injury with brief loss of consciousness Primary Care Provider: Mejia Cabral ED Provider: Chanel Lynn Home Meds and New Rx's Prescriptions: No Action pantoprazole [Protonix] 40 mg tablet,delayed release (DR/EC) 40 mg PO DAILY Qty: 30 0RF epinephrine [EpiPen 2-Zeeshan] 0.3 MG/0.3 ML auto-injector 0.3 mg IM PRN Qty: 1 Rx Instructions: Give IM PRN for severe allergic reaction. fluoxetine 20 mg capsule 20 mg PO DAILY Patient Comments: TAKE ONE CAPSULE BY MOUTH EVERY DAY Discharge Instructions Instructions: Head Injury Observation (DC), Laceration Repair With Stitches ED, Fainting, Adult ED Additional Instructions: At this time head CT preliminary result shows no bleeding in your brain, no broken bones. The laceration was repaired with 4 sutures these need to be removed in approximately 5 to 7 days. Do not wait any later than 10 days. After 24 hours you may wash under running soap and water, no soaking or swimming. Allow to air dry at least 2 hours a day. Do not shave until after the sutures are removed. Please return to the ER for any signs of infection including increased red streaks, drainage, swelling or increased pain. The numbing medicine should wear off in approximately 2 hours. Follow up with primary care provider in 3-5 days. Return to ED sooner if any worsening headache, blurry vision double vision, repeat fainting, nausea vomiting or concerns. Thank you for allowing us to care for you today. Referrals: [facility] [Outside] Referral Note: Call if return anxiety for counseling Mejia Cabral [Primary Care Provider, Medicine] - 1 week Referral Note: ER follow-up, call for appointment Clinical Impression: Syncope; Chin laceration; Closed head injury with brief loss of consciousness Discharge Data Discharge Date/Time-TO BE ENTERED AT DEPARTURE: 05/26/25 21:25 HPI General Mode of arrival: ambulatory . Date/Time Provider Initiated Documentation: 05/26/25 18:28 . Limitations to Documentation: no limitations . Information obtained by: patient, RN notes reviewed and old records reviewed . HPI Narrative: 24-year-old male presents to the ER with a chief complaint of syncopal episode, preceded by aura patient reports as feeling nauseous, having a panic attack and hyperventilating while in the bathroom. He then lost consciousness and woke up on the ground with laceration to his chin he also reports he then vomited. He does have some swelling noted to his left frontal scalp, he does have approximately 2 cm laceration noted to the bottom of his chin. He is ANO x 4 denies any neck or back pain but does report some stiffness. Reports that the nausea has since subsided. Denies any chest pain abdominal pain diarrhea or any further vomiting at this time. Does have a past medical history of ADHD, he does endorse marijuana. He does also have a history of a thyroid nodule. Related Data Home Medications ?Medication ?Instructions ?Recorded ?Confirmed epinephrine 0.3 mg/0.3 mL 0.3 mg IM PRN ##1 03/21/16 0 05/26/25 injection, auto-injector (EpiPen 2-Zeeshan) pantoprazole 40 mg tablet,delayed 40 mg PO DAILY #30 t abs 11/17/24 05/26/25 release (Protonix) fluoxetine 20 mg capsule 20 mg PO DAILY 05/26/2503/15 Previous Rx's ?Medication ?Instructions ?Recorded pantoprazole 40 mg tablet,delayed 40 mg PO DAILY #30 t abs 11/17/24 release (Protonix) Allergies Allergy/AdvReac Type Severity Reaction Status Date / Time shellfish derived Allergy Intermediate SWOLLEN Verified 05/26/25 18:28 LIPS AND PALATE General Stated Complaint: Laceration GWENDOLYN: 3 Review of Systems All systems reviewed & are unremarkable except as noted in HPI and below Constitutional Constitutional: Reports as per HPI and Reports headache(s) Eyes Eyes: Denies loss of vision ENT Ears, Nose, Mouth, and Throat: Reports headache(s) and Denies neck pain Cardiovascular Cardiovascular: Denies chest pain, Reports syncope and Denies dyspnea Respiratory Respiratory: Denies dyspnea Gastrointestinal Gastrointestinal: Denies abdominal pain, Reports nausea and Reports vomiting Musculoskeletal Musculoskeletal: Reports as per HPI, Denies back pain, Denies neck pain, Denies numbness and Reports stiffness Integumentary/Breasts Skin/Breast: Reports as per HPI, Reports skin pain, Reports skin swelling (Left frontal scalp) and Reports wounds (Chin laceration) Neurologic Neurologic: Reports as per HPI, Denies confusion, Reports syncope, Reports headache(s), Denies localized weakness, Denies loss of vision, Denies memory loss, Denies numbness and Denies convulsions Psychiatric Psychiatric: Reports as per HPI, Reports anxiety, Denies confusion, Denies memory loss and Reports panic attacks Exam Narrative Exam Narrative: General: Well Developed, Awake and Alert, conversant. Skin: Warm and Dry HEENT: Head: No palpable deformities, Normocephalic Eyes: Pupils PERRLA, EOM's intact. No periorbital eccymosis or step off Ears: Canal patent. Tympanic membranes are clear . No shultz's sign, no hemptympanum. Nose/Face: Facial bones nontender to palpation and stable with manipulation. Laceration approximately 2 cm noted to the bottom of chin, bleeding controlled, swelling noted to the left anterior forehead. Mouth/Throat: No intraoral trauma. Teeth and mandible are intact. No TMJ tenderness, Neck: No midline tenderness, no step off, no deformity to palpation of C-spine. Trachea midline. Chest: No surface trauma. Nontender without crepitus or deformity. Lungs clear to ausculatation bilaterally. Heart: RRR, no rubs, murmurs or gallop. Abdomen: No abrasions, ecchymosis, or surface trauma. Nondistended. Nontender to palpation no guarding, rebound, or rigidity. Pelvis: Nontender to palpation and stable to compression. Femoral pulses strong and equal Extremities: no surface trauma. Sensation intact. Peripheral pulses intact and equal. Neuro: ANO x4, GCS 15, cranial nerves II through XII intact. Motor and sensory exam nonfocal. Reflexes are symmetric. [facility] Head images: 2 1. Approximately 2 cm partial-thickness laceration noted 2. Swelling superficial abrasion Course Vital Signs Vital signs: Vital Signs Temperature 36.6 C 05/26/25 18: Pulse 71 05/26/25 18:25 Respiratory Rate 18 05/26/25 18:25 Blood Pressure 130/84 05/26/25 18: Pulse Oximetry 98 05/26/25 18: Temperature 36.6 C 05/26/25 18: Temperature Source Oral 05/26/25 18: Pulse 71 05/26/25 18:25 Respiratory Rate 18 05/26/25 18:25 Blood Pressure 130/84 05/26/25 18:25 Pulse Oximetry 98 05/26/25 18:25 Pain Level 5 05/26/25 18:25 Procedure Laceration Laceration 1: Date of Procedure: 05/26/25 Time of procedure: 20:56 Provider that performed the procedure: Chanel Rodriguez Time Out Performed: Yes Patient Consented: Verbally Site: face (Chin) Description: linear Depth: simple, single layer Local anesthetic: Lidocaine 2% Amount of anesthesia used (mL): 3 Pre-repair:: wound explored and irrigated extensively Skin layer closed with: nylon Suture size: 4-0 Number of sutures:: 4 Technique: simple, interrupted Procedure Description/Note: Laceration was cleaned with chlorhexidine scrub, anesthetized with 2% lidocaine and topical let patient tolerated well. Anesthesia achieved. Laceration repaired with #4, 4.0 Ethilon sutures simple interrupted. Wound well- approximated. Medical Decision Making 24-year-old male presents to the ER with a chief complaint of syncopal episode, preceded by aura patient reports as feeling nauseous, having a panic attack and hyperventilating while in the bathroom. He then lost consciousness and woke up on the ground with laceration to his chin he also reports he then vomited. He does have some swelling noted to his left frontal scalp, he does have approximately 2 cm laceration noted to the bottom of his chin. He is ANO x 4 denies any neck or back pain but does report some stiffness. Reports that the nausea has since subsided. Denies any chest pain abdominal pain diarrhea or any further vomiting at this time. Does have a past medical history of ADHD, he does endorse marijuana. He does also have a history of a thyroid nodule. At this time due to syncopal episode, nausea vomiting will do head CT and CT facial's rule out fracture. Patient has no midline C-spine T or L-spine tenderness no crepitus no step-off. Denies any chest pain shortness of breath. Reports that nausea is subsided. Did consider labs however patient declined at this time. Will continue to observe and reevaluate. Last tetanus was [address] shows no evidence of cranial or facial abnormality. On patient reevaluation he denies any nausea headache blurry vision or confusion. Discussed CT results. Laceration was repaired as per procedure note, 4 simple interrupted sutures were placed. Instructed to have sutures removed in approximately 5 to 7 days return sooner for any signs of infection or complications. Return instructions were discussed with the patient who verbalized understanding. He remains ANO x 4 has no complaints at this time. This text was generated using [employer] system, please disregard any oddities of phrase or misspellings. Imaging Data Radiologic Study: Imaging: CT Scan Radiologist's impression: TECHNIQUE: Imaging protocol: Computed tomography of the head without contrast. COMPARISON: No relevant prior studies available. FINDINGS: Brain: No acute intracranial hemorrhage, mass-effect, midline shift, or extra-axial collection is seen. The church white matter differentiation appears preserved. Cerebral ventricles: The ventricular system and basilar cisterns appear appropriate in size and configuration. Paranasal sinuses: There is mild patchy mucoperiosteal thickening in the ethmoid sinuses. Otherwise, the visualized paranasal sinuses appear clear. Mastoid air cells: The mastoid air cells appear well-aerated. Auditory system: The middle ear cavities appear clear. Orbital cavities: The globes and intraorbital structures appear grossly intact. Bones: The bony calvarium appears intact. No depressed skull fracture is seen. Soft tissues: No gross focal scalp hematoma is seen. IMPRESSION: No acute intracranial hemorrhage or depressed skull fracture. Clinical indication: Other: Syncope, chin injury TECHNIQUE: Imaging protocol: Computed tomography of the face without contrast. COMPARISON: No relevant prior studies available. FINDINGS: Paranasal sinuses: There is mild patchy mucoperiosteal thickening in the paranasal sinuses. No airfluid levels are seen. Orbital cavities: The globes and intraorbital structures appear grossly intact. Nasal cavity: There is mild leftward deviation of the nasal septum. Bones: No acute facial fracture is seen. Soft tissues: There appears to be a laceration extending across the patient's chin. No gross focal soft tissue hematoma is seen. IMPRESSION: No acute facial fracture is seen. Thank you for allowing us to participate in the care of your patient. Dictated and Authenticated by: Guanakito Butt MD ON LICENSE OF [facility] All Active Problems (Updated 05/26/25 @ 21:05 by Chanel Lynn NP) Closed head injury with brief loss of consciousness (Acute) Chin laceration (Acute) Syncope (Chronic) Chronic nausea (Acute) Diarrhea (Acute) Epigastric pain (Acute) Medical History Multinodular goiter (10/14/13) Followed at [facility] endocrine. nml labs. 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
--- NOTE | 2025-05-26 20:16 | DI.VRAD_ITS ---
PROCEDURE INFORMATION: Exam: CT Head Without Contrast Exam date and time: 05/26/2025 7:29 PM Age: 24 years old Clinical indication: Other: Syncope, chin injury TECHNIQUE: Imaging protocol: Computed tomography of the head without contrast. COMPARISON: No relevant prior studies available. FINDINGS: Brain: No acute intracranial hemorrhage, mass-effect, midline shift, or extra-axial collection is seen. The church white matter differentiation appears preserved. Cerebral ventricles: The ventricular system and basilar cisterns appear appropriate in size and configuration. Paranasal sinuses: There is mild patchy mucoperiosteal thickening in the ethmoid sinuses. Otherwise, the visualized paranasal sinuses appear clear. Mastoid air cells: The mastoid air cells appear well-aerated. Auditory system: The middle ear cavities appear clear. Orbital cavities: The globes and intraorbital structures appear grossly intact. Bones: The bony calvarium appears intact. No depressed skull fracture is seen. Soft tissues: No gross focal scalp hematoma is seen. IMPRESSION: No acute intracranial hemorrhage or depressed skull fracture. PROCEDURE INFORMATION: Exam: CT Maxillofacial Without Contrast Exam date and time: 05/26/2025 7:29 PM Age: 24 years old Clinical indication: Other: Syncope, chin injury TECHNIQUE: Imaging protocol: Computed tomography of the face without contrast. COMPARISON: No relevant prior studies available. FINDINGS: Paranasal sinuses: There is mild patchy mucoperiosteal thickening in the paranasal sinuses. No air-fluid levels are seen. Orbital cavities: The globes and intraorbital structures appear grossly intact. Nasal cavity: There is mild leftward deviation of the nasal septum. Bones: No acute facial fracture is seen. Soft tissues: There appears to be a laceration extending across the patient's chin. No gross focal soft tissue hematoma is seen. IMPRESSION: No acute facial fracture is seen. Dictated and Authenticated by: Guanakito Butt MD. Orderin Shane Buchanan MD
[2025-05-26 20:35] VITALS: RESP 16
[2025-05-26 21:13] VITALS: RESP 16
[2025-05-26 21:15] VITALS: BP 123/79; PULSE 62; RESP 18; TEMP 35.9; O2SAT 99
[2025-05-26 21:23] VITALS: BP 123/79; PULSE 62; RESP 18; TEMP 35.9; O2SAT 99
== END 2025-05-26 21:25 | disposition home or self-care (01) ==
PROVIDERS: Emergency Provider Registered Nurse Emergency; PCP Student in an Organized Health Care Education/Training Program
DX: R55 Syncope and collapse (principal); S01.81XA Laceration without foreign body of other part of head, initial encounter; S06.891A Other specified intracranial injury with loss of consciousness of 30 minutes or less, initial encounter; S00.81XA Abrasion of other part of head, initial encounter; F17.290 Nicotine dependence, other tobacco product, uncomplicated; W01.198A Fall on same level from slipping, tripping and stumbling with subsequent striking against other object, initial encounter; Y93.89 Activity, other specified; Y92.018 Other place in single-family (private) house as the place of occurrence of the external cause
CPT/HCPCS: 12011; 99284; 70450; 70486